=== PATIENT | male | born 1950 | race Caucasian/White ===

== ENCOUNTER 2017-12-16 20:36 | Inpatient (IN) | payer OTHER, MEDICARE ==
[~2017-12-16] VITALS: Ht 190.5 cm; Wt 65.9 kg
[2017-12-16] MEDS ORDERED: IV NORMAL SALINE 1000ML BAG 1,000 ML IV ONE (21:15)
[2017-12-16] MEDS ORDERED: 0.9 % SOD CHL for STERILE FIELD 10 ML DISP.SYRIN. ONE (21:31)
--- NOTE | 2017-12-16 21:38 | PHYS DOC ---
Past Medical History Past Medical History: Other Additional Past Medical Histor: end stage lung cancer Past Medical History Unable to obtain due to altered mental status Past Surgical History Unable to obtain due to altered mental status Alcohol Use: None Drug Use: None Social History Unable to obtain due to altered mental status Adult General Chief Complaint Chief Complaint: ALTERED MENTAL STATUS HPI HPI Patient is a 67 year old male with past medical history of metastatic lung cancer. Patient presents via EMS for altered mental status, syncope, generalized fatigue, and decreased appetite. Unable to obtain history from patient due to confusion and altered mental status. As per EMS patient had a syncopal episode while he was walking at his nursing facility patient did not fall as he was able to be helped to the ground by the staff there. Review of Systems Review of Systems Constitutional: Denies fever or chills [] HENT: Denies nasal congestion or sore throat Respiratory: Denies cough or shortness of breath [] Cardiovascular: Denies chest pain[] GI: Denies abdominal pain[] Musculoskeletal: Notes back pain [] Neurologic: Notes confusion[] Unable to obtain due to altered mental status. Family History Family History Unable to obtain due to altered mental status Current Medications Current Medications Current Medications Medications (Trade) Dose Ordered Sig/Elida Start Time Stop Time Status Last Admin Dose Admin Lorazepam (Ativan) 1 mg 1X ONCE 12/16/17 22:30 12/16/17 22:51 DC 12/16/17 22:46 1 MG Sodium Chloride (NORMAL SALINE FLUSH for STERILE FIELD) 10 ml STK-MED ONCE 12/16/17 21:31 12/16/17 21:32 DC Allergies Allergies Allergies Coded Allergies Type Severity Reaction Last Updated Verified Penicillins Allergy Intermediate 12/16/17 Yes Physical Exam Physical Exam Constitutional: Well developed, no acute distress, non-toxic appearance. [] HENT: Normocephalic, atraumatic, oropharynx moist, no oral exudates, nose normal. [] Eyes: PERRL, EOMI, conjunctiva normal, no discharge. [] Neck: Normal range of motion, no tenderness, supple, no meningismus. [] Cardiovascular:Heart rate regular rhythm, no murmur [] Lungs & Thorax: Bilateral breath sounds clear to auscultation [] Abdomen: Scaphoid, soft, nondistended, no tenderness [] Skin: Warm, dry, no erythema, no rash. [] Back: No tenderness, no CVA tenderness. [] Extremities: No tenderness, ROM intact, no edema. [] Neurologic: Confused, Alert and oriented X1-self only, normal motor function, normal sensory function, no focal deficits noted. Cerebellar testing UE and LE normal [] Psychologic: Affect normal, mood normal, tangential thought process [] Current Patient Data Vital Signs Vital Signs Date Time Temp Pulse Resp B/P (MAP) Pulse Ox O2 Delivery O2 Flow Rate FiO2 12/17/17 00:08 88 18 106/72 (83) 97 Room Air 12/16/17 20:45 97.9 97.9 Lab Values Laboratory Tests Test 12/16/17 21:26 12/17/17 00:03 White Blood Count 9.3 x10^3/uL (4.0-11.0) Red Blood Count 3.97 x10^6/uL (4.30-5.70) L Hemoglobin 12.4 g/dL (13.0-17.5) L Hematocrit 36.5 % (39.0-53.0) L Mean Corpuscular Volume 92 fL (79-100) Mean Corpuscular Hemoglobin 31 pg (25-35) Mean Corpuscular Hemoglobin Concent 34 g/dL (31-37) Red Cell Distribution Width 13.1 % (11.5-14.5) Platelet Count 261 x10^3/uL (140-400) Neutrophils (%) (Auto) 87 % (31-73) H Lymphocytes (%) (Auto) 10 % (24-48) L Monocytes (%) (Auto) 2 % (0-9) Eosinophils (%) (Auto) 1 % (0-3) Basophils (%) (Auto) 1 % (0-3) Neutrophils # (Auto) 8.1 x10^3uL (1.8-7.7) H Lymphocytes # (Auto) 0.9 x10^3/uL (1.0-4.8) L Monocytes # (Auto) 0.2 x10^3/uL (0.0-1.1) Eosinophils # (Auto) 0.1 x10^3/uL (0.0-0.7) Basophils # (Auto) 0.0 x10^3/uL (0.0-0.2) Prothrombin Time 14.5 SEC (11.7-14.0) H Prothrombin Time INR 1.2 (0.8-1.1) H PTT 28 SEC (24-38) Sodium Level 137 mmol/L (136-145) Potassium Level 4.2 mmol/L (3.5-5.1) Chloride Level 100 mmol/L (98-107) Carbon Dioxide Level 27 mmol/L (21-32) Anion Gap 10 (6-14) Blood Urea Nitrogen 20 mg/dL (8-26) Creatinine 0.9 mg/dL (0.7-1.3) Estimated GFR (Cockcroft-Gault) 84.7 BUN/Creatinine Ratio 22 (6-20) H Glucose Level 105 mg/dL (70-99) H Lactic Acid Level 1.9 mmol/L (0.4-2.0) Calcium Level 8.8 mg/dL (8.5-10.1) Magnesium Level 2.0 mg/dL (1.8-2.4) Total Bilirubin 0.7 mg/dL (0.2-1.0) Aspartate Amino Transferase (AST) 29 U/L (15-37) Alanine Aminotransferase (ALT) 25 U/L (16-63) Alkaline Phosphatase 103 U/L (46-116) Ammonia < 10 mcmol/L (11-34) L Troponin I Quantitative < 0.017 ng/mL (0.000-0.055) Total Protein 6.3 g/dL (6.4-8.2) L Albumin 2.4 g/dL (3.4-5.0) L Albumin/Globulin Ratio 0.6 (1.0-1.7) L Ethyl Alcohol Level < 10 mg/dL (0-10) Urine Collection Type Unknown Urine Color Yellow Urine Clarity Cloudy Urine pH 7.5 Urine Specific [place] 1.025 Urine Protein 30 mg/dL (NEG-TRACE) Urine Glucose (UA) Negative mg/dL (NEG) Urine Ketones (Stick) >=80 mg/dL (NEG) Urine Blood Negative (NEG) Urine Nitrite Negative (NEG) Urine Bilirubin Small (NEG) Urine Urobilinogen Dipstick 1.0 mg/dL (0.2 mg/dL) Urine Leukocyte Esterase Negative (NEG) Urine RBC 0 /HPF (0-2) Urine WBC 1-4 /HPF (0-4) Urine Squamous Epithelial Cells Occ /LPF Urine Amorphous Sediment Present /HPF Urine Bacteria 0 /HPF (0-FEW) Urine Mucus Slight /LPF Urine Opiates Screen Neg (NEG) Urine Methadone Screen Neg (NEG) Urine Barbiturates Neg (NEG) Urine Phencyclidine Screen Neg (NEG) Urine Amphetamine/Methamphetamine Neg (NEG) Urine Benzodiazepines Screen Neg (NEG) Urine Cocaine Screen Neg (NEG) Urine Cannabinoids Screen Neg (NEG) Urine Ethyl Alcohol Neg (NEG) Laboratory Tests 12/16/17 21:26 Laboratory Tests 12/16/17 21:26 EKG EKG Sinus rhythm, rate 82, CO 140, QRS 86, QTC 426 right axis deviation no acute ischemic changes noted.[] Interpretation Time: 2146 Radiology/Procedures Radiology/Procedures PROCEDURE: PORTABLE CHEST 1V AP portable chest radiograph 12/16/2017 Clinical History: Shortness of breath since earlier today. An AP erect portable digital radiograph of the chest was obtained. No previous studies are available for comparison. The cardiac silhouette is normal in size. The thoracic aorta is minimally tortuous. No acute pulmonary infiltrate is seen. Blunting of the left costophrenic angle is seen which could reflect pleural thickening versus a minimal left pleural effusion. No pneumothorax is seen. Degenerative changes are seen involving the thoracic spine and both shoulders. IMPRESSION: No acute pulmonary infiltrate is seen. Electronically signed by: Abran Viveros MD (12/17/2017 12:14 AM) [facility] Course & Med Decision Making Course & Med Decision Making Pertinent Labs and Imaging studies reviewed. (See chart for details) [] Dragon Disclaimer Dragon Disclaimer This electronic medical record was generated, in whole or in part, using a voice recognition dictation system. Departure Departure Impression: Primary Impression: Altered mental status Additional Impressions: Generalized weakness History of cancer Disposition: ADMITTED INPATIENT Admitting Physician: Xie. Bernard Condition: GUARDED Problem Qualifiers Primary Impression: Altered mental status Altered mental status type: unspecified Qualified Codes: R41.82 - Altered mental status, unspecified LAKEISHA GOMEZ DO Dec 16, 2017 21:38
[2017-12-16 21:41] LABS: BASO % 1 % (0-3); EOS # 0.1 x10^3/uL (0.0-0.7); EOS % 1 % (0-3); HEMATOCRIT 36.5 % (39.0-53.0); HEMOGLOBIN 12.4 g/dL (13.0-17.5); LYMPH # 0.9 x10^3/uL (1.0-4.8); LYMPH % 10 % (24-48); MEAN CORPUSCULAR HEMOGLOBIN 31 pg (25-35); MEAN CORPUSCULAR HGB CONC 34 g/dL (31-37); MEAN CORPUSCULAR VOLUME 92 fL (79-100); MONO # 0.2 x10^3/uL (0.0-1.1); MONO % 2 % (0-9); NEUT # 8.1 x10^3uL (1.8-7.7); NEUT % 87 % (31-73); PLATELET COUNT 261 x10^3/uL (140-400); RED BLOOD COUNT 3.97 x10^6/uL (4.30-5.70); RED CELL DISTRIBUTION WIDTH 13.1 % (11.5-14.5); WHITE BLOOD COUNT 9.3 x10^3/uL (4.0-11.0)
[2017-12-16 21:52] LABS: PROTHROMBIN TIME PATIENT 14.5 SEC (11.7-14.0)
[2017-12-16 22:00] LABS: CALCIUM 8.8 mg/dL (8.5-10.1); CREATININE 0.9 mg/dL (0.7-1.3); GFR 84.7; POTASSIUM 4.2 mmol/L (3.5-5.1)
[2017-12-16 22:05] LABS: ALBUMIN 2.4 g/dL (3.4-5.0); ALBUMIN/GLOBULIN RATIO 0.6 (1.0-1.7); TOTAL BILIRUBIN 0.7 mg/dL (0.2-1.0); TOTAL PROTEIN 6.3 g/dL (6.4-8.2)
--- NOTE | 2017-12-16 22:09 | EKG ---
[facility] [address] [place] [address] Test Date: 2017-12-16 Test Time: 21:24:00 Pat Name: JOSE SPARKS Department: Room: Gender: Male Pediatric Immunologist: : 1950 Requested By: LAKEISHA GOMEZ Order Number: [id number] Reading MD: Amanuel Santana MD Measurements Intervals [place] Rate: 82 P: 121 AL: 140 QRS: 154 QRSD: 86 T: 125 QT: 362 QTc: 426 Interpretive Statements LIMB LEAD MISPLACEMENT NON-SPECIFIC ST/T CHANGES Electronically Signed On 12-17-2017 12:50:22 CDT by Amanuel Santana MD
[2017-12-17] VITALS (7 sets, daily range): BP systolic 98–112; BP diastolic 65–76
[2017-12-17 00:13] LABS: BILIRUBIN,URINE SMALL (NEG); CLARITY,URINE CLOUDY; COLOR,URINE YELLOW; NITRITE,URINE NEGATIVE (NEG); PH,URINE 7.5; PROTEIN,URINE 30 mg/dL (NEG-TRACE)
[2017-12-17] MEDS ORDERED: ONDANSETRON PF 4 MG/2 ML VIAL. IV PRN ×2 (00:15→09:30)
--- NOTE | 2017-12-17 00:17 | RAD ---
AP portable chest radiograph 12/16/2017 Clinical History: Shortness of breath since earlier today. An AP erect portable digital radiograph of the chest was obtained. No previous studies are available for comparison. The cardiac silhouette is normal in size. The thoracic aorta is minimally tortuous. No acute pulmonary infiltrate is seen. Blunting of the left costophrenic angle is seen which could reflect pleural thickening versus a minimal left pleural effusion. No pneumothorax is seen. Degenerative changes are seen involving the thoracic spine and both shoulders. IMPRESSION: No acute pulmonary infiltrate is seen. Electronically signed by: Abran Viveros MD (12/17/2017 12:14 AM) [facility]
[2017-12-17 00:21] LABS: BARBITURATES NEG (NEG); BENZODIAZEPINES NEG (NEG); CANNABINOIDS NEG (NEG); COCAINE NEG (NEG); METHADONE NEG (NEG); OPIATES NEG (NEG); PHENCYCLIDINE NEG (NEG)
[2017-12-17 00:22] LABS: BACTERIA,URINE 0 /HPF (0-FEW); RBC,URINE 0 /HPF (0-2)
[2017-12-17 00:23] LABS: AMORPHOUS SEDIMENT,UR PRESENT /HPF; SQUAMOUS EPITHELIAL CELL,UR OCC /LPF
[2017-12-17 00:24] LABS: AMPHETAMINE/METHAMPHETAMINE NEG (NEG)
[2017-12-17] MEDS ORDERED: FOLI1TAB16 PO (02:47)
[2017-12-17] MEDS ORDERED: DOCU100C28 PO (02:47)
[2017-12-17] MEDS ORDERED: MELA1TAB11 PO (02:47)
[2017-12-17] MEDS ORDERED: LORA0.5T PO (02:47)
[2017-12-17] MEDS ORDERED: SUCR1TAB PO (02:47)
[2017-12-17] MEDS ORDERED: ONDA4TAB7 PO (02:47)
[2017-12-17] MEDS ORDERED: MIDO5TAB PO (02:47)
[2017-12-17] MEDS ORDERED: SENN-79 PO (02:47)
[2017-12-17] MEDS ORDERED: DICL100G18 TP (02:47)
[2017-12-17] MEDS ORDERED: PANT20TA2 PO (02:47)
[2017-12-17] MEDS ORDERED: FLUT9.9S NS (02:47)
[2017-12-17] MEDS ORDERED: MIRT15TA3 PO (02:47)
[2017-12-17] MEDS ORDERED: LIDO700A39 TP (02:47)
[2017-12-17] MEDS ORDERED: HYDR-971 PO (02:47)
[2017-12-17] MEDS ORDERED: CYCL10TA2 PO (02:47)
[2017-12-17] MEDS ORDERED: GABA-585 PO (02:47)
[2017-12-17] MEDS ORDERED: POLY255P PO (02:47)
[2017-12-17] MEDS ORDERED: ACETAMINOPHEN 325 MG TABLET. PO PRN (09:30)
[2017-12-17] MEDS ORDERED: POLYETHYLENE GLYCOL 3350 238 GM POWDER PO PRN (09:30)
[2017-12-17] MEDS ORDERED: CYCLOBENZAPRINE 10 MG TABLET. PO PRN (09:30)
[2017-12-17] MEDS ORDERED: ACETAMINOPHEN/CODEINE 300/30MG TABLET. PO PRN (09:30)
[2017-12-17] MEDS ORDERED: PYRIDOXINE HCL PO PRN (09:30)
[2017-12-17] MEDS ORDERED: IBUPROFEN 200 MG TABLET. PO PRN (09:30)
[2017-12-17] MEDS ORDERED: LORazepam 0.5 MG TABLET PO PRN (09:30)
[2017-12-17] MEDS ORDERED: MELATONIN PO PRN (09:30)
[2017-12-17] MEDS ORDERED: ONDANSETRON ODT 4 MG TAB.RAPDIS. PO PRN (09:45)
[2017-12-17] MEDS: FLUTICASONE 50MCG/NASAL SPRAY 16GM BOTTLE. NS SCH ×2 (10:00→20:16)
[2017-12-17] MEDS: LIDOCAINE (700MG/PATCH) PATCH. TD SCH (10:00)
[2017-12-17] MEDS: GABAPENTIN 100 MG CAPSULE. PO SCH ×3 (10:17→20:16)
[2017-12-17] MEDS: DOCUSATE SODIUM 100 MG CAPSULE. PO SCH ×2 (10:17→20:19)
[2017-12-17] MEDS: FOLIC ACID 1 MG TABLET. PO SCH (10:17)
[2017-12-17] MEDS: PANTOPRAZOLE 40 MG TABLET.DR. PO SCH (11:30)
[2017-12-17] MEDS: SUCRALFATE 1 GM TABLET. PO SCH ×3 (11:30→20:16)
[2017-12-17] MEDS: DICLOFENAC SODIUM 1% TOPICAL GEL 100GM TUBE. TP SCH ×3 (13:00→20:19)
[2017-12-17] MEDS: MIDODRINE 5 MG TABLET PO SCH ×2 (13:33→18:00)
[2017-12-17] MEDS: MEGESTROL 20 MG TABLET. PO SCH (14:00)
--- NOTE | 2017-12-17 14:16 | PDOC1 ---
History and Physical Date of Admission Date of Admission DATE: 12/17/17 TIME: 14:06 Identification/Chief Complaint Chief Complaint poor appetite, fatigued at [facility] Source Source: Caregiver, Chart review, Patient History of Present Illness History of Present Illness Patient is a 67-year-old male who was recently diagnosed with metastatic lung carcinoma and follows with the supervisor [employer] oncologist and is undergoing chemotherapy, last one was maybe a week or 2 ago, is currently rehab[facility] at [facility]. Son involved in care, but because of poor by mouth intake and FTT sxs at healthcare [facility], the staff advised hospital admission to get more nutrition into him. Son had some very unhappy experiences with the ER, they did not wish to be "reinventing the wheel" so to speak and they felt that their needs or reason for admission was not listened to at ER. In any case, their focus is mainly on nutrition of their dad. I did have significant time discussing with the family, 2 visits today. I layed out options of nutrition. Which included Dobbhoff, ProcalAmine via peripheral line, TPN via PICC line and PEG tube. They did not seem attracted to the Dobbhoff because of discomfort and risks of being pulled-patient can be confused, it is optimal to try use the gut too so I did not recommend PICC line for TPN at the moment, We all decided to start a trial of Megace and ProcalAmine for now and see if he will recover nutrition intake. I did consult nutrition about possible boost. I did start Megace. Significant time. He is a full code, I discussed with the son at bedside but they are realistic. They don't want him prolonged on a ventilator or life support machines. [facility] discharge disposition will depend if patient will be on TPN PICC line-I did discuss with social work area to see with his insurance coverage but somehow we have our reservations as he has [employer] on coverage. In any case I have started the above. Full code, PT OT, proliferative meds, fall risk. Labs and imaging at ER are unimpressive. Pt got Ativan at the emergency room and family isn't happy about that as he got more even confused not able to eat Past Medical History Cardiovascular: HTN Heme/Onc: Anemia NOS, Cancer Past Surgical History Past Surgical History: No pertinent history Family History Family History: No Significant Social History Smoke: No ALCOHOL: none Drugs: None Current Problem List Problem List Problems Medical Problems: (1) Altered mental status Status: Acute (2) Generalized weakness Status: Acute (3) History of cancer Status: Acute Current Medications Current Medications Current Medications Sodium Chloride 1,000 ml @ 1,000 mls/hr 1X ONCE IV Last administered on at 21:53; Start 12/16/17 at 21:15; Stop 12/16/17 at 22:51; Status DC Sodium Chloride (NORMAL SALINE FLUSH for STERILE FIELD) 10 ml [employer] Gaming[employer]-MED ONCE .ROUTE ; Start 12/16/17 at 21:31; Stop 12/16/17 at 21:32; Status DC Lorazepam (Ativan) 1 mg 1X ONCE IV Last administered on 12/16/17at 22:46; Start 12/16/17 at 22:30; Stop 12/16/17 at 22:51; Status DC Ondansetron HCl (Zofran) 4 mg PRN Q8HRS PRN IV NAUSEA/VOMITING 1st choice; Start 12/17/17 at 00:15; Stop 12/17/17 at 09:19; Status DC Ondansetron HCl (Zofran) 4 mg PRN Q6HRS PRN IV NAUSEA/VOMITING 1st choice; Start 12/17/17 at 09:30 Acetaminophen (Tylenol) 650 mg PRN Q6HRS PRN PO MILD PAIN; Start 12/17/17 at 09 :30 Acetaminophen/ Codeine Phosphate (Tylenol #3) 1 tab PRN Q6HRS PRN PO MODERATE PAIN; Start 12/17/17 at 09:30 Ibuprofen (Motrin) 600 mg PRN Q6HRS PRN PO INFLAMMATION; Start 12/17/17 at 09: 30 Cyclobenzaprine HCl (Flexeril) 10 mg Q8HRS PRN PO MUSCLE SPASMS; Start at 09:30 Diclofenac Sodium (Voltaren) 1 dee QID TP ; Start 12/17/17 at 13:00 Docusate Sodium (Colace) 100 mg BID PO Last administered on 12/17/17at 10:17; Start 12/17/17 at 10:00 Folic Acid (Folic Acid) 1 mg DAILY PO Last administered on 12/17/17at 10:17; Start 12/17/17 at 10:00 Gabapentin (Neurontin) 200 mg TID PO Last administered on 12/17/17at 13:33; Start 12/17/17 at 10:00 Acetaminophen/ Hydrocodone Bitart (Lortab 5/325) 1 tab PRN Q6HRS PRN PO MODERATE PAIN; Start 12/17/17 at 09:30 Lorazepam (Ativan) 0.5 mg PRN Q6HRS PRN PO ANXIETY; Start 12/17/17 at 09:30 Polyethylene Glycol (miraLAX Powder BULK BOTTLE) 17 gm PRN Q6HRS PRN PO CONSTIPATION; Start 12/17/17 at 09:30 Fluticasone Propionate (Flonase) 1 spray BID NS ; Start 12/17/17 at 10:00 Lidocaine (Lidoderm) 1 patch DAILY TD ; Start 12/17/17 at 10:00 Non-Formulary Medication (Melatonin/ Pyridoxine Hcl (B6) (Melatonin 5 Mg Tablet) ) 1 tab QHS PRN PO INSOMNIA; Start 12/17/17 at 09:30; Status UNV Midodrine (Proamatine) 5 mg [id number] PO Last administered on 12/17/17at 13:33; Start 12/17/17 at 13:00 Mirtazapine (Remeron) 7.5 mg QHS PO ; Start 12/17/17 at 21:00 Ondansetron HCl (Zofran Odt) 4 mg PRN Q6HRS PRN PO NAUSEA/VOMITING; Start 12/17 at 09:45 Pantoprazole Sodium (Protonix) 40 mg DAILYAC PO ; Start 12/17/17 at 11:30 Sennosides (Senna) 17.2 mg QHS PO ; Start 12/17/17 at 21:00 Sucralfate (Carafate) 1 gm QIDACHS PO ; Start 12/17/17 at 11:30 Pyridoxine HCl (Vitamin B-6) 50 mg QHS PO ; Start 12/17/17 at 21:00 Amino Acids/ Glycerin/ Electrolytes 1,000 ml @ 80 mls/hr [id number] IV ; Start at 15:00 Megestrol Acetate (Megace) 20 mg DAILY PO ; Start 12/18/17 at 09:00; Status UNV Active Scripts Active Reported Cyclobenzaprine Hcl 10 Mg Tablet 1 Tab PO Q8HRS PRN [place] 5-325 Tablet (Acetaminophen/Hydrocodone Bitart) 1 Each Tablet 1 Tab PO PRN Q6HRS PRN Melatonin 5 Mg Tablet (Melatonin/Pyridoxine Hcl (B6)) 1 Each Tablet 1 Tab PO QHS PRN Zofran (Ondansetron Hcl) 4 Mg Tablet 1 Tab PO Q6HRS PRN Lorazepam 0.5 Mg Tablet 1 Tab PO Q6HRS PRN Polyethylene Glycol 3350 255 Gm Powder 17 Gm PO Q6HRS PRN Senna (Sennosides) 8.6 Mg Tablet 17.6 Mg PO QHS Sucralfate 1 Gm Tablet 1 Tab PO QID Mirtazapine 15 Mg Tablet 0.5 Tab PO QHS Flonase Allergy Relief (Fluticasone Propionate) 9.9 Ml [place].susp 2 Sprays NS BID Voltaren (Diclofenac Sodium) 100 Gm Gel..gram. 1 Gm TP QID Protonix (Pantoprazole Sodium) 20 Mg Tablet.dr 2 Tab PO DAILY Folic Acid 1 Mg Tablet 1 Tab PO DAILY Gabapentin 100 Mg Capsule 200 Mg PO TID Lidocaine 1 Each Adh..patch 1 Each TP DAILY 5% patch apply to upper back Docusate Sodium 100 Mg Capsule 1 Cap PO BID Midodrine Hcl 5 Mg Tablet 5 Mg PO TID hold for bp >160 systolic Allergies Allergies: Coded Allergies: Penicillins (Verified Allergy, Intermediate, 12/16/17) ROS Review of System Limited has some confusion, cognitive delirium dementia- family feels median, poor by mouth, fall risk, some confusion, Physical Exam General: No acute distress, Other (pleasant, smiling, not in distress, but some element of dementia may be) HEENT: PERRLA Lungs: Clear to auscultation, Normal air movement Heart: S1S2, RRR, no thrills, no rubs, no gallops, murmurs Cardiovascular: S1 Abdomen: Normal bowel sounds, Soft, No tenderness, No hepatosplenomegaly, No masses Male Genitals Exam: normal genitalia, normal prostate Rectal Exam: not examined Extremities: No clubbing, No cyanosis, No edema, Normal pulses, No tenderness/ swelling Skin: No rashes, No breakdown, No significant lesion Neuro: Normal gait, Normal speech, Strength at 5/5 X4 ext, Normal tone, Sensation intact, Cranial nerves 3-12 NL, Reflexes 2+ Psych/Mental Status: Mental status NL, Mood NL Vitals Vitals Vital Signs Date Time Temp Pulse Resp B/P (MAP) Pulse Ox O2 Delivery O2 Flow Rate FiO2 12/17/17 13:33 86 104/67 12/17/17 11:00 98.1 18 96 Room Air 98.1 Labs Labs Laboratory Tests Test 12/16/17 21:26 12/17/17 00:03 12/17/17 03:10 12/17/17 05:20 White Blood Count 9.3 x10^3/uL (4.0-11.0) Red Blood Count 3.97 x10^6/uL (4.30-5.70) Hemoglobin 12.4 g/dL (13.0-17.5) Hematocrit 36.5 % (39.0-53.0) Mean Corpuscular Volume 92 fL (79-100) Mean Corpuscular Hemoglobin 31 pg (25-35) Mean Corpuscular Hemoglobin Concent 34 g/dL (31-37) Red Cell Distribution Width 13.1 % (11.5-14.5) Platelet Count 261 x10^3/uL (140-400) Neutrophils (%) (Auto) 87 % (31-73) Lymphocytes (%) (Auto) 10 % (24-48) Monocytes (%) (Auto) 2 % (0-9) Eosinophils (%) (Auto) 1 % (0-3) Basophils (%) (Auto) 1 % (0-3) Neutrophils # (Auto) 8.1 x10^3uL (1.8-7.7) Lymphocytes # (Auto) 0.9 x10^3/uL (1.0-4.8) Monocytes # (Auto) 0.2 x10^3/uL (0.0-1.1) Eosinophils # (Auto) 0.1 x10^3/uL (0.0-0.7) Basophils # (Auto) 0.0 x10^3/uL (0.0-0.2) Prothrombin Time 14.5 SEC (11.7-14.0) Prothromb Time International Ratio 1.2 (0.8-1.1) Activated Partial Thromboplast Time 28 SEC (24-38) Sodium Level 137 mmol/L (136-145) Potassium Level 4.2 mmol/L (3.5-5.1) Chloride Level 100 mmol/L (98-107) Carbon Dioxide Level 27 mmol/L (21-32) Anion Gap 10 (6-14) Blood Urea Nitrogen 20 mg/dL (8-26) Creatinine 0.9 mg/dL (0.7-1.3) Estimated GFR (Cockcroft-Gault) 84.7 BUN/Creatinine Ratio 22 (6-20) Glucose Level 105 mg/dL (70-99) Lactic Acid Level 1.9 mmol/L (0.4-2.0) Calcium Level 8.8 mg/dL (8.5-10.1) Magnesium Level 2.0 mg/dL (1.8-2.4) Total Bilirubin 0.7 mg/dL (0.2-1.0) Aspartate Amino Transf (AST/SGOT) 29 U/L (15-37) Alanine Aminotransferase (ALT/SGPT) 25 U/L (16-63) Alkaline Phosphatase 103 U/L (46-116) Ammonia < 10 mcmol/L (11-34) Troponin I Quantitative < 0.017 ng/mL (0.000-0.055) < 0.017 ng/mL (0.000-0.055) < 0.017 ng/mL (0.000-0.055) Total Protein 6.3 g/dL (6.4-8.2) Albumin 2.4 g/dL (3.4-5.0) Albumin/Globulin Ratio 0.6 (1.0-1.7) Ethyl Alcohol Level < 10 mg/dL (0-10) Urine Collection Type Unknown Urine Color Yellow Urine Clarity Cloudy Urine pH 7.5 Urine Specific [place] 1.025 Urine Protein 30 mg/dL (NEG-TRACE) Urine Glucose (UA) Negative mg/dL (NEG) Urine Ketones (Stick) >=80 mg/dL (NEG) Urine Blood Negative (NEG) Urine Nitrite Negative (NEG) Urine Bilirubin Small (NEG) Urine Urobilinogen Dipstick 1.0 mg/dL (0.2 mg/dL) Urine Leukocyte Esterase Negative (NEG) Urine RBC 0 /HPF (0-2) Urine WBC 1-4 /HPF (0-4) Urine Squamous Epithelial Cells Occ /LPF Urine Amorphous Sediment Present /HPF Urine Bacteria 0 /HPF (0-FEW) Urine Mucus Slight /LPF Urine Opiates Screen Neg (NEG) Urine Methadone Screen Neg (NEG) Urine Barbiturates Neg (NEG) Urine Phencyclidine Screen Neg (NEG) Urine Amphetamine/Methamphetamine Neg (NEG) Urine Benzodiazepines Screen Neg (NEG) Urine Cocaine Screen Neg (NEG) Urine Cannabinoids Screen Neg (NEG) Urine Ethyl Alcohol Neg (NEG) Thyroid Stimulating Hormone (TSH) 6.754 uIU/mL (0.358-3.74) Laboratory Tests Test 12/16/17 21:26 12/17/17 00:03 12/17/17 03:10 12/17/17 05:20 White Blood Count 9.3 x10^3/uL (4.0-11.0) Red Blood Count 3.97 x10^6/uL (4.30-5.70) Hemoglobin 12.4 g/dL (13.0-17.5) Hematocrit 36.5 % (39.0-53.0) Mean Corpuscular Volume 92 fL (79-100) Mean Corpuscular Hemoglobin 31 pg (25-35) Mean Corpuscular Hemoglobin Concent 34 g/dL (31-37) Red Cell Distribution Width 13.1 % (11.5-14.5) Platelet Count 261 x10^3/uL (140-400) Neutrophils (%) (Auto) 87 % (31-73) Lymphocytes (%) (Auto) 10 % (24-48) Monocytes (%) (Auto) 2 % (0-9) Eosinophils (%) (Auto) 1 % (0-3) Basophils (%) (Auto) 1 % (0-3) Neutrophils # (Auto) 8.1 x10^3uL (1.8-7.7) Lymphocytes # (Auto) 0.9 x10^3/uL (1.0-4.8) Monocytes # (Auto) 0.2 x10^3/uL (0.0-1.1) Eosinophils # (Auto) 0.1 x10^3/uL (0.0-0.7) Basophils # (Auto) 0.0 x10^3/uL (0.0-0.2) Prothrombin Time 14.5 SEC (11.7-14.0) Prothromb Time International Ratio 1.2 (0.8-1.1) Activated Partial Thromboplast Time 28 SEC (24-38) Sodium Level 137 mmol/L (136-145) Potassium Level 4.2 mmol/L (3.5-5.1) Chloride Level 100 mmol/L (98-107) Carbon Dioxide Level 27 mmol/L (21-32) Anion Gap 10 (6-14) Blood Urea Nitrogen 20 mg/dL (8-26) Creatinine 0.9 mg/dL (0.7-1.3) Estimated GFR (Cockcroft-Gault) 84.7 BUN/Creatinine Ratio 22 (6-20) Glucose Level 105 mg/dL (70-99) Lactic Acid Level 1.9 mmol/L (0.4-2.0) Calcium Level 8.8 mg/dL (8.5-10.1) Magnesium Level 2.0 mg/dL (1.8-2.4) Total Bilirubin 0.7 mg/dL (0.2-1.0) Aspartate Amino Transf (AST/SGOT) 29 U/L (15-37) Alanine Aminotransferase (ALT/SGPT) 25 U/L (16-63) Alkaline Phosphatase 103 U/L (46-116) Ammonia < 10 mcmol/L (11-34) Troponin I Quantitative < 0.017 ng/mL (0.000-0.055) < 0.017 ng/mL (0.000-0.055) < 0.017 ng/mL (0.000-0.055) Total Protein 6.3 g/dL (6.4-8.2) Albumin 2.4 g/dL (3.4-5.0) Albumin/Globulin Ratio 0.6 (1.0-1.7) Ethyl Alcohol Level < 10 mg/dL (0-10) Urine Collection Type Unknown Urine Color Yellow Urine Clarity Cloudy Urine pH 7.5 Urine Specific [place] 1.025 Urine Protein 30 mg/dL (NEG-TRACE) Urine Glucose (UA) Negative mg/dL (NEG) Urine Ketones (Stick) >=80 mg/dL (NEG) Urine Blood Negative (NEG) Urine Nitrite Negative (NEG) Urine Bilirubin Small (NEG) Urine Urobilinogen Dipstick 1.0 mg/dL (0.2 mg/dL) Urine Leukocyte Esterase Negative (NEG) Urine RBC 0 /HPF (0-2) Urine WBC 1-4 /HPF (0-4) Urine Squamous Epithelial Cells Occ /LPF Urine Amorphous Sediment Present /HPF Urine Bacteria 0 /HPF (0-FEW) Urine Mucus Slight /LPF Urine Opiates Screen Neg (NEG) Urine Methadone Screen Neg (NEG) Urine Barbiturates Neg (NEG) Urine Phencyclidine Screen Neg (NEG) Urine Amphetamine/Methamphetamine Neg (NEG) Urine Benzodiazepines Screen Neg (NEG) Urine Cocaine Screen Neg (NEG) Urine Cannabinoids Screen Neg (NEG) Urine Ethyl Alcohol Neg (NEG) Thyroid Stimulating Hormone (TSH) 6.754 uIU/mL (0.358-3.74) VTE Prophylaxis Ordered VTE Prophylaxis Devices: Yes VTE Pharmacological Prophylaxi: Yes Assessment/Plan Assessment/Plan Poor by mouth, weight loss, fatigability Metastatic lung cancer, recently diagnosed, undergoing chemotherapy Anemia of cancer High fall risk Encephalopathy, multifactorial Franco thrive symptoms Full code Adverse reaction to Ativan- - too much sedation PLAN: Admit, procalamine, Megace Nutrition consult Boost DVT ppx Supportive emds NO more ativan Full code SIGNIF TIME JAIME MALAVE MD Dec 17, 2017 14:16
[2017-12-17] MEDS: AMINO AC 3%/ELECTROLYTE/GLYCER 1,000 ML IV SCH (17:13)
[2017-12-17] MEDS: ENOXAPARIN 40 MG/0.4 ML SYRINGE. SQ SCH (20:16)
[2017-12-17] MEDS: MIRTAZAPINE 7.5 MG TABLET. PO SCH (20:16)
[2017-12-17] MEDS: SENNOSIDES 8.6 MG TABLET PO SCH (20:19)
[2017-12-17] MEDS: PYRIDOXINE 50 MG TABLET. PO SCH (20:19)
[2017-12-18 03:25] VITALS: BP 109/71
[2017-12-18] MEDS: AMINO AC 3%/ELECTROLYTE/GLYCER 1,000 ML IV SCH ×2 (04:42→19:36)
[2017-12-18 07:00] VITALS: BP 111/70
[2017-12-18] MEDS: FLUTICASONE 50MCG/NASAL SPRAY 16GM BOTTLE. NS SCH ×2 (08:52→21:00)
[2017-12-18] MEDS: DOCUSATE SODIUM 100 MG CAPSULE. PO SCH ×2 (08:53→21:00)
[2017-12-18] MEDS: MEGESTROL 20 MG TABLET. PO SCH (08:53)
[2017-12-18] MEDS: MIDODRINE 5 MG TABLET PO SCH ×3 (08:53→18:00)
[2017-12-18] MEDS: FOLIC ACID 1 MG TABLET. PO SCH (08:53)
[2017-12-18] MEDS: SUCRALFATE 1 GM TABLET. PO SCH ×4 (08:54→21:00)
[2017-12-18] MEDS: GABAPENTIN 100 MG CAPSULE. PO SCH ×3 (08:54→21:00)
[2017-12-18] MEDS: PANTOPRAZOLE 40 MG TABLET.DR. PO SCH (08:54)
[2017-12-18] MEDS: DICLOFENAC SODIUM 1% TOPICAL GEL 100GM TUBE. TP SCH ×4 (08:55→21:00)
[2017-12-18] MEDS: LIDOCAINE (700MG/PATCH) PATCH. TD SCH (08:55)
[2017-12-18 11:00] VITALS: BP 98/74
--- NOTE | 2017-12-18 12:19 | PDOC ---
PROGRESS NOTES Chief Complaint Chief Complaint acute metabolic encephalopathy, NOS Metastatic lung cancer, recently diagnosed, undergoing chemotherapy [facility], unsure if mets to brain Anemia of cancer High fall risk Encephalopathy, multifactorial Franco thrive symptoms Full code Adverse reaction to Ativan- - too much sedation History of Present Illness History of Present Illness started on PPN by admit doctor, I dont know what the long-term plan is,, have consulted palliative and Onc, Nutrition consult Boost DVT ppx Supportive meds Full code Vitals Vitals Vital Signs Date Time Temp Pulse Resp B/P (MAP) Pulse Ox O2 Delivery O2 Flow Rate FiO2 12/18/17 11:00 98.1 78 16 98/74 (82) 97 Room Air 98.1 Physical Exam General: No acute distress, Other (pleasant, smiling, not in distress, but some element of dementia may be) Heart: Regular rate Lungs: Other Abdomen: Normal bowel sounds, Soft, No tenderness, No hepatosplenomegaly, No masses Extremities: No clubbing, No cyanosis, No edema, Normal pulses, No tenderness/ swelling Skin: No rashes, No breakdown, No significant lesion Assessment and Plan Assessmemt and Plan Problems Medical Problems: (1) Altered mental status Status: Acute (2) Generalized weakness Status: Acute (3) History of cancer Status: Acute Comment Review of Relevant I have reviewed the following items violet (where applicable) has been applied. Labs Laboratory Tests Test 12/16/17 21:26 12/17/17 00:03 12/17/17 02:40 12/17/17 03:10 White Blood Count 9.3 x10^3/uL (4.0-11.0) Red Blood Count 3.97 x10^6/uL (4.30-5.70) Hemoglobin 12.4 g/dL (13.0-17.5) Hematocrit 36.5 % (39.0-53.0) Mean Corpuscular Volume 92 fL (79-100) Mean Corpuscular Hemoglobin 31 pg (25-35) Mean Corpuscular Hemoglobin Concent 34 g/dL (31-37) Red Cell Distribution Width 13.1 % (11.5-14.5) Platelet Count 261 x10^3/uL (140-400) Neutrophils (%) (Auto) 87 % (31-73) Lymphocytes (%) (Auto) 10 % (24-48) Monocytes (%) (Auto) 2 % (0-9) Eosinophils (%) (Auto) 1 % (0-3) Basophils (%) (Auto) 1 % (0-3) Neutrophils # (Auto) 8.1 x10^3uL (1.8-7.7) Lymphocytes # (Auto) 0.9 x10^3/uL (1.0-4.8) Monocytes # (Auto) 0.2 x10^3/uL (0.0-1.1) Eosinophils # (Auto) 0.1 x10^3/uL (0.0-0.7) Basophils # (Auto) 0.0 x10^3/uL (0.0-0.2) Prothrombin Time 14.5 SEC (11.7-14.0) Prothromb Time International Ratio 1.2 (0.8-1.1) Activated Partial Thromboplast Time 28 SEC (24-38) Sodium Level 137 mmol/L (136-145) Potassium Level 4.2 mmol/L (3.5-5.1) Chloride Level 100 mmol/L (98-107) Carbon Dioxide Level 27 mmol/L (21-32) Anion Gap 10 (6-14) Blood Urea Nitrogen 20 mg/dL (8-26) Creatinine 0.9 mg/dL (0.7-1.3) Estimated GFR (Cockcroft-Gault) 84.7 BUN/Creatinine Ratio 22 (6-20) Glucose Level 105 mg/dL (70-99) Lactic Acid Level 1.9 mmol/L (0.4-2.0) Calcium Level 8.8 mg/dL (8.5-10.1) Magnesium Level 2.0 mg/dL (1.8-2.4) Total Bilirubin 0.7 mg/dL (0.2-1.0) Aspartate Amino Transf (AST/SGOT) 29 U/L (15-37) Alanine Aminotransferase (ALT/SGPT) 25 U/L (16-63) Alkaline Phosphatase 103 U/L (46-116) Ammonia < 10 mcmol/L (11-34) Troponin I Quantitative < 0.017 ng/mL (0.000-0.055) < 0.017 ng/mL (0.000-0.055) Total Protein 6.3 g/dL (6.4-8.2) Albumin 2.4 g/dL (3.4-5.0) Albumin/Globulin Ratio 0.6 (1.0-1.7) Ethyl Alcohol Level < 10 mg/dL (0-10) Urine Collection Type Unknown Urine Color Yellow Urine Clarity Cloudy Urine pH 7.5 Urine Specific [place] 1.025 Urine Protein 30 mg/dL (NEG-TRACE) Urine Glucose (UA) Negative mg/dL (NEG) Urine Ketones (Stick) >=80 mg/dL (NEG) Urine Blood Negative (NEG) Urine Nitrite Negative (NEG) Urine Bilirubin Small (NEG) Urine Urobilinogen Dipstick 1.0 mg/dL (0.2 mg/dL) Urine Leukocyte Esterase Negative (NEG) Urine RBC 0 /HPF (0-2) Urine WBC 1-4 /HPF (0-4) Urine Squamous Epithelial Cells Occ /LPF Urine Amorphous Sediment Present /HPF Urine Bacteria 0 /HPF (0-FEW) Urine Mucus Slight /LPF Urine Opiates Screen Neg (NEG) Urine Methadone Screen Neg (NEG) Urine Barbiturates Neg (NEG) Urine Phencyclidine Screen Neg (NEG) Urine Amphetamine/Methamphetamine Neg (NEG) Urine Benzodiazepines Screen Neg (NEG) Urine Cocaine Screen Neg (NEG) Urine Cannabinoids Screen Neg (NEG) Urine Ethyl Alcohol Neg (NEG) Nasal Screen MRSA (PCR) Negative (Negative) Test 12/17/17 05:20 Troponin I Quantitative < 0.017 ng/mL (0.000-0.055) Thyroid Stimulating Hormone (TSH) 6.754 uIU/mL (0.358-3.74) Medications Current Medications Sodium Chloride 1,000 ml @ 1,000 mls/hr 1X ONCE IV Last administered on at 21:53; Start 12/16/17 at 21:15; Stop 12/16/17 at 22:51; Status DC Sodium Chloride (NORMAL SALINE FLUSH for STERILE FIELD) 10 ml [place] ONCE .ROUTE ; Start 12/16/17 at 21:31; Stop 12/16/17 at 21:32; Status DC Lorazepam (Ativan) 1 mg 1X ONCE IV Last administered on 12/16/17at 22:46; Start 12/16/17 at 22:30; Stop 12/16/17 at 22:51; Status DC Ondansetron HCl (Zofran) 4 mg PRN Q8HRS PRN IV NAUSEA/VOMITING 1st choice; Start 12/17/17 at 00:15; Stop 12/17/17 at 09:19; Status DC Ondansetron HCl (Zofran) 4 mg PRN Q6HRS PRN IV NAUSEA/VOMITING 1st choice; Start 12/17/17 at 09:30 Acetaminophen (Tylenol) 650 mg PRN Q6HRS PRN PO MILD PAIN; Start 12/17/17 at 09 :30 Acetaminophen/ Codeine Phosphate (Tylenol #3) 1 tab PRN Q6HRS PRN PO MODERATE PAIN; Start 12/17/17 at 09:30; Stop 12/17/17 at 14:14; Status DC Ibuprofen (Motrin) 600 mg PRN Q6HRS PRN PO INFLAMMATION; Start 12/17/17 at 09: 30 Cyclobenzaprine HCl (Flexeril) 10 mg Q8HRS PRN PO MUSCLE SPASMS; Start at 09:30 Diclofenac Sodium (Voltaren) 1 dee QID TP ; Start 12/17/17 at 13:00 Docusate Sodium (Colace) 100 mg BID PO Last administered on 12/18/17at 08:53; Start 12/17/17 at 10:00 Folic Acid (Folic Acid) 1 mg DAILY PO Last administered on 12/18/17at 08:53; Start 12/17/17 at 10:00 Gabapentin (Neurontin) 200 mg TID PO Last administered on 12/18/17at 08:54; Start 12/17/17 at 10:00 Acetaminophen/ Hydrocodone Bitart (Lortab 5/325) 1 tab PRN Q6HRS PRN PO MODERATE-SEVERE PAIN; Start 12/17/17 at 09:30 Lorazepam (Ativan) 0.5 mg PRN Q6HRS PRN PO ANXIETY; Start 12/17/17 at 09:30; Stop 12/17/17 at 14:14; Status DC Polyethylene Glycol (miraLAX Powder BULK BOTTLE) 17 gm PRN Q6HRS PRN PO CONSTIPATION; Start 12/17/17 at 09:30 Fluticasone Propionate (Flonase) 1 spray BID NS Last administered on 12/18/17at 08:52; Start 12/17/17 at 10:00 Lidocaine (Lidoderm) 1 patch DAILY TD ; Start 12/17/17 at 10:00 Non-Formulary Medication (Melatonin/ Pyridoxine Hcl (B6) (Melatonin 5 Mg Tablet) ) 1 tab QHS PRN PO INSOMNIA; Start 12/17/17 at 09:30; Status UNV Midodrine (Proamatine) 5 mg [id number] PO Last administered on 12/18/17at 08:53; Start 12/17/17 at 13:00 Mirtazapine (Remeron) 7.5 mg QHS PO Last administered on 12/17/17at 20:16; Start 12/17/17 at 21:00 Ondansetron HCl (Zofran Odt) 4 mg PRN Q6HRS PRN PO NAUSEA/VOMITING; Start 12/17 at 09:45 Pantoprazole Sodium (Protonix) 40 mg DAILYAC PO Last administered on 12/18/17at 08:54; Start 12/17/17 at 11:30 Sennosides (Senna) 17.2 mg QHS PO ; Start 12/17/17 at 21:00 Sucralfate (Carafate) 1 gm QIDACHS PO Last administered on 12/18/17at 08:54; Start 12/17/17 at 11:30 Pyridoxine HCl (Vitamin B-6) 50 mg QHS PO Last administered on 12/17/17at 20:19 ; Start 12/17/17 at 21:00 Amino Acids/ Glycerin/ Electrolytes 1,000 ml @ 80 mls/hr [id number] IV Last administered on 12/18/17at 04:42; Start 12/17/17 at 15:00 Megestrol Acetate (Megace) 20 mg DAILY PO Last administered on 12/18/17at 08:53 ; Start 12/17/17 at 14:00 Enoxaparin Sodium (Lovenox 40mg Syringe) 40 mg Q24H SQ Last administered on at 20:16; Start 12/17/17 at 21:00 Active Scripts Active Reported Cyclobenzaprine Hcl 10 Mg Tablet 1 Tab PO Q8HRS PRN [place] 5-325 Tablet (Acetaminophen/Hydrocodone Bitart) 1 Each Tablet 1 Tab PO PRN Q6HRS PRN Melatonin 5 Mg Tablet (Melatonin/Pyridoxine Hcl (B6)) 1 Each Tablet 1 Tab PO QHS PRN Zofran (Ondansetron Hcl) 4 Mg Tablet 1 Tab PO Q6HRS PRN Lorazepam 0.5 Mg Tablet 1 Tab PO Q6HRS PRN Polyethylene Glycol 3350 255 Gm Powder 17 Gm PO Q6HRS PRN Senna (Sennosides) 8.6 Mg Tablet 17.6 Mg PO QHS Sucralfate 1 Gm Tablet 1 Tab PO QID Mirtazapine 15 Mg Tablet 0.5 Tab PO QHS Flonase Allergy Relief (Fluticasone Propionate) 9.9 Ml [employer].susp 2 Sprays NS BID Voltaren (Diclofenac Sodium) 100 Gm Gel..gram. 1 Gm TP QID Protonix (Pantoprazole Sodium) 20 Mg Tablet.dr 2 Tab PO DAILY Folic Acid 1 Mg Tablet 1 Tab PO DAILY Gabapentin 100 Mg Capsule 200 Mg PO TID Lidocaine 1 Each Adh..patch 1 Each TP DAILY 5% patch apply to upper back Docusate Sodium 100 Mg Capsule 1 Cap PO BID Midodrine Hcl 5 Mg Tablet 5 Mg PO TID hold for bp >160 systolic Vitals/I & O Vital Sign - Last 24 Hours 12/17/17 12/17/17 12/17/17 12/17/17 13:33 15:00 19:20 19:55 Temp 98.0 98.2 98.0 98.2 Pulse 86 86 90 Resp 18 20 B/P (MAP) 104/67 98/69 (79) 101/65 (77) Pulse Ox 96 98 O2 Delivery Room Air Room Air Room Air 12/17/17 12/18/17 12/18/17 12/18/17 23:20 03:25 07:00 08:00 Temp 98.1 98.5 97.8 98.1 98.5 97.8 Pulse 83 78 78 Resp 18 18 18 B/P (MAP) 101/69 (80) 109/71 (84) 111/70 (84) Pulse Ox 96 97 96 O2 Delivery Room Air Room Air Room Air Room Air 12/18/17 12/18/17 08:53 11:00 Temp 98.1 98.1 Pulse 78 78 Resp 16 B/P (MAP) 111/70 98/74 (82) Pulse Ox 97 O2 Delivery Room Air Intake and Output 12/17/17 12/17/17 12/18/17 15:00 23:00 07:00 Intake Total 50 ml 1160 ml Output Total 200 ml Balance 50 ml 960 ml MAURY MCMULLEN MD Dec 18, 2017 12:18
[2017-12-18] MEDS ORDERED: GADOBUTROL 7.5 MMOL/7.5 ML VIAL IV ONE (13:30)
--- NOTE | 2017-12-18 13:36 | PDOC2 ---
PALLIATIVE CARE Palliative Care Note Palliative Care Consult requested by Abena to address goals of care. Patient alert. Denies pain. Confused. Not sure why he is in the hospital. Has had a "little cancer:" Spoke with Adam/nephew. States he is DPOA along with his sister. They are aware of his medical diagnosis. Requested copy of POA document. Plan family meeting tomorrow at 1100. RUFUS JUAREZ Dec 18, 2017 13:36
--- NOTE | 2017-12-18 14:01 | RAD ---
MRI Brain without contrast History: Lung cancer Technique: Multiplanar, multisequential noncontrast MR imaging was performed of the brain. However only a few of the image sequences were obtained, entirety of the exam not completed. Patient did not receive contrast. Contrast: None Comparison: None Findings: There is some motion degradation. There is no restricted diffusion suggestive of recent infarct or cytotoxic edema. There is mild generalized supratentorial atrophy, ventricular size proportionate to the sulcal spaces. There is cavum septum pellucidum. There is very minimal T2 and FLAIR hyperintense signal near the bilateral frontal horns and left occipital horn. Allowing for motion, there is no convincing intra-axial mass effect. Appearance of mild increased FLAIR signal in subdural location along the right lateral convexity is otherwise difficult to accurately characterize, on T2 sequence appearance of some bridging veins, greatest thickness about 0.3 cm. There is patchy very minimal ethmoid air cell mucosal thickening, also mild right inferior maxillary sinus mucosal thickening. Mastoid air cells are overall aerated. Cerebellar tonsils are normal in location. There is no mild nonspecific heterogeneity of the marrow of the clivus, no expansion. Impression: 1. Enteric exam was not completed, no contrast given and there is motion degradation. There is no significant intracranial mass effect. Very minimal T2 and FLAIR hyperintense signal of the supratentorial parenchyma is nonspecific, may be due to chronic microvascular ischemic disease. There is generalized supratentorial involutional change. There is mild subdural signal change along the right convexity possibly sequela of older subdural hematoma or effusion although on T2 sequence appearance of some bridging veins. Electronically signed by: Pollo Domínguez MD (12/18/2017 1:58 PM) [email or web address]
[2017-12-18 15:00] VITALS: BP 119/79
[2017-12-18 19:53] VITALS: BP 108/76
[2017-12-18] MEDS: MIRTAZAPINE 7.5 MG TABLET. PO SCH (21:00)
[2017-12-18] MEDS: PYRIDOXINE 50 MG TABLET. PO SCH (21:00)
[2017-12-18] MEDS: SENNOSIDES 8.6 MG TABLET PO SCH (21:00)
[2017-12-18] MEDS: ENOXAPARIN 40 MG/0.4 ML SYRINGE. SQ SCH (22:28)
[2017-12-18 23:54] VITALS: BP 118/75
[2017-12-19 03:54] VITALS: BP 116/71
[2017-12-19] MEDS: AMINO AC 3%/ELECTROLYTE/GLYCER 1,000 ML IV SCH ×2 (05:03→23:33)
[2017-12-19] MEDS: MIDODRINE 5 MG TABLET PO SCH ×3 (07:00→18:00)
[2017-12-19] MEDS: SUCRALFATE 1 GM TABLET. PO SCH ×4 (07:30→21:00)
[2017-12-19] MEDS: PANTOPRAZOLE 40 MG TABLET.DR. PO SCH (07:30)
[2017-12-19 07:45] VITALS: BP 112/74
[2017-12-19] MEDS: FLUTICASONE 50MCG/NASAL SPRAY 16GM BOTTLE. NS SCH ×2 (08:57→21:00)
[2017-12-19] MEDS: DOCUSATE SODIUM 100 MG CAPSULE. PO SCH ×2 (08:58→21:00)
[2017-12-19] MEDS: DICLOFENAC SODIUM 1% TOPICAL GEL 100GM TUBE. TP SCH ×4 (08:58→21:00)
[2017-12-19] MEDS: GABAPENTIN 100 MG CAPSULE. PO SCH ×3 (08:58→21:00)
[2017-12-19] MEDS: MEGESTROL 20 MG TABLET. PO SCH (08:58)
[2017-12-19] MEDS: FOLIC ACID 1 MG TABLET. PO SCH (08:58)
[2017-12-19] MEDS: LIDOCAINE (700MG/PATCH) PATCH. TD SCH (08:58)
--- NOTE | 2017-12-19 09:19 | PDOC ---
PROGRESS NOTES Chief Complaint Chief Complaint acute metabolic encephalopathy, NOS Metastatic lung cancer, recently diagnosed, undergoing chemotherapy [facility], unsure if mets to brain Anemia of cancer High fall risk Encephalopathy, multifactorial Franco thrive symptoms Full code Adverse reaction to Ativan- - too much sedation History of Present Illness History of Present Illness on PPN DVT ppx Supportive meds family meeting today, I recommend discharge to residential with hospice. I had discussed with DPOA yesterday Full code, Palliative care to address Vitals Vitals Vital Signs Date Time Temp Pulse Resp B/P (MAP) Pulse Ox O2 Delivery O2 Flow Rate FiO2 12/19/17 08:00 Room Air 12/19/17 07:45 97.5 75 18 112/74 (87) 99 97.5 Physical Exam General: Alert, No acute distress, Other (pleasant, smiling, not in distress, but some element of dementia may be) Heart: Regular rate Lungs: Other Abdomen: Normal bowel sounds, Soft, No tenderness, No hepatosplenomegaly, No masses Extremities: No clubbing, No cyanosis, No edema, Normal pulses, No tenderness/ swelling Skin: No rashes, No breakdown, No significant lesion Assessment and Plan Assessmemt and Plan Problems Medical Problems: (1) Altered mental status Status: Acute (2) Generalized weakness Status: Acute (3) History of cancer Status: Acute Comment Review of Relevant I have reviewed the following items violet (where applicable) has been applied. Medications Current Medications Sodium Chloride 1,000 ml @ 1,000 mls/hr 1X ONCE IV Last administered on at 21:53; Start 12/16/17 at 21:15; Stop 12/16/17 at 22:51; Status DC Sodium Chloride (NORMAL SALINE FLUSH for STERILE FIELD) 10 ml STK-MED ONCE .ROUTE ; Start 12/16/17 at 21:31; Stop 12/16/17 at 21:32; Status DC Lorazepam (Ativan) 1 mg 1X ONCE IV Last administered on 12/16/17at 22:46; Start 12/16/17 at 22:30; Stop 12/16/17 at 22:51; Status DC Ondansetron HCl (Zofran) 4 mg PRN Q8HRS PRN IV NAUSEA/VOMITING 1st choice; Start 12/17/17 at 00:15; Stop 12/17/17 at 09:19; Status DC Ondansetron HCl (Zofran) 4 mg PRN Q6HRS PRN IV NAUSEA/VOMITING 1st choice; Start 12/17/17 at 09:30 Acetaminophen (Tylenol) 650 mg PRN Q6HRS PRN PO MILD PAIN; Start 12/17/17 at 09 :30 Acetaminophen/ Codeine Phosphate (Tylenol #3) 1 tab PRN Q6HRS PRN PO MODERATE PAIN; Start 12/17/17 at 09:30; Stop 12/17/17 at 14:14; Status DC Ibuprofen (Motrin) 600 mg PRN Q6HRS PRN PO INFLAMMATION; Start 12/17/17 at 09: 30 Cyclobenzaprine HCl (Flexeril) 10 mg Q8HRS PRN PO MUSCLE SPASMS; Start at 09:30 Diclofenac Sodium (Voltaren) 1 dee QID TP ; Start 12/17/17 at 13:00 Docusate Sodium (Colace) 100 mg BID PO Last administered on 12/18/17at 08:53; Start 12/17/17 at 10:00 Folic Acid (Folic Acid) 1 mg DAILY PO Last administered on 12/18/17at 08:53; Start 12/17/17 at 10:00 Gabapentin (Neurontin) 200 mg TID PO Last administered on 12/18/17at 17:27; Start 12/17/17 at 10:00 Acetaminophen/ Hydrocodone Bitart (Lortab 5/325) 1 tab PRN Q6HRS PRN PO MODERATE-SEVERE PAIN; Start 12/17/17 at 09:30 Lorazepam (Ativan) 0.5 mg PRN Q6HRS PRN PO ANXIETY; Start 12/17/17 at 09:30; Stop 12/17/17 at 14:14; Status DC Polyethylene Glycol (miraLAX Powder BULK BOTTLE) 17 gm PRN Q6HRS PRN PO CONSTIPATION; Start 12/17/17 at 09:30 Fluticasone Propionate (Flonase) 1 spray BID NS Last administered on 12/19/17at 08:57; Start 12/17/17 at 10:00 Lidocaine (Lidoderm) 1 patch DAILY TD ; Start 12/17/17 at 10:00 Non-Formulary Medication (Melatonin/ Pyridoxine Hcl (B6) (Melatonin 5 Mg Tablet) ) 1 tab QHS PRN PO INSOMNIA; Start 12/17/17 at 09:30; Status UNV Midodrine (Proamatine) 5 mg [id number] PO Last administered on 12/18/17at 08:53; Start 12/17/17 at 13:00 Mirtazapine (Remeron) 7.5 mg QHS PO Last administered on 12/17/17at 20:16; Start 12/17/17 at 21:00 Ondansetron HCl (Zofran Odt) 4 mg PRN Q6HRS PRN PO NAUSEA/VOMITING; Start 12/17 at 09:45 Pantoprazole Sodium (Protonix) 40 mg DAILYAC PO Last administered on 12/18/17at 08:54; Start 12/17/17 at 11:30 Sennosides (Senna) 17.2 mg QHS PO ; Start 12/17/17 at 21:00 Sucralfate (Carafate) 1 gm QIDACHS PO Last administered on 12/18/17at 17:27; Start 12/17/17 at 11:30 Pyridoxine HCl (Vitamin B-6) 50 mg QHS PO Last administered on 12/17/17at 20:19 ; Start 12/17/17 at 21:00 Amino Acids/ Glycerin/ Electrolytes 1,000 ml @ 80 mls/hr [id number] IV Last administered on 12/19/17at 05:03; Start 12/17/17 at 15:00 Megestrol Acetate (Megace) 20 mg DAILY PO Last administered on 12/18/17at 08:53 ; Start 12/17/17 at 14:00 Enoxaparin Sodium (Lovenox 40mg Syringe) 40 mg Q24H SQ Last administered on at 22:28; Start 12/17/17 at 21:00 Gadobutrol (Gadavist) 7.5 mmol 1X ONCE IV ; Start 12/18/17 at 13:30; Stop 12/18 at 13:31; Status DC Active Scripts Active Reported Cyclobenzaprine Hcl 10 Mg Tablet 1 Tab PO Q8HRS PRN [place] 5-325 Tablet (Acetaminophen/Hydrocodone Bitart) 1 Each Tablet 1 Tab PO PRN Q6HRS PRN Melatonin 5 Mg Tablet (Melatonin/Pyridoxine Hcl (B6)) 1 Each Tablet 1 Tab PO QHS PRN Zofran (Ondansetron Hcl) 4 Mg Tablet 1 Tab PO Q6HRS PRN Lorazepam 0.5 Mg Tablet 1 Tab PO Q6HRS PRN Polyethylene Glycol 3350 255 Gm Powder 17 Gm PO Q6HRS PRN Senna (Sennosides) 8.6 Mg Tablet 17.6 Mg PO QHS Sucralfate 1 Gm Tablet 1 Tab PO QID Mirtazapine 15 Mg Tablet 0.5 Tab PO QHS Flonase Allergy Relief (Fluticasone Propionate) 9.9 Ml [place].susp 2 Sprays NS BID Voltaren (Diclofenac Sodium) 100 Gm Gel..gram. 1 Gm TP QID Protonix (Pantoprazole Sodium) 20 Mg Tablet.dr 2 Tab PO DAILY Folic Acid 1 Mg Tablet 1 Tab PO DAILY Gabapentin 100 Mg Capsule 200 Mg PO TID Lidocaine 1 Each Adh..patch 1 Each TP DAILY 5% patch apply to upper back Docusate Sodium 100 Mg Capsule 1 Cap PO BID Midodrine Hcl 5 Mg Tablet 5 Mg PO TID hold for bp >160 systolic Vitals/I & O Vital Sign - Last 24 Hours 12/18/17 12/18/17 12/18/17 12/18/17 11:00 15:00 18:00 19:53 Temp 98.1 98.2 97.5 98.1 98.2 97.5 Pulse 78 77 77 76 Resp 16 16 16 B/P (MAP) 98/74 (82) 119/79 (92) 119/79 108/76 (87) Pulse Ox 97 98 97 O2 Delivery Room Air Room Air Room Air 12/18/17 12/18/17 12/19/17 12/19/17 20:00 23:54 03:54 07:45 Temp 97.4 97.8 97.5 97.4 97.8 97.5 Pulse 83 72 75 Resp 16 16 18 B/P (MAP) 118/75 (89) 116/71 (86) 112/74 (87) Pulse Ox 98 98 99 O2 Delivery Room Air Room Air Room Air Room Air 12/19/17 08:00 O2 Delivery Room Air Intake and Output 12/18/17 12/18/17 12/19/17 15:00 23:00 07:00 Intake Total 1050 ml Balance 1050 ml Nutrition Consultation Dietary Evaluation: Recommendations by RD: Increase Calorie Intake, Protein supplementation, PPN/ TPN Comments: ensure enlive bid ensure pudding bid ppn @ 80 ml/ hr day 2- continue Expected Outcomes/Goals: to meet > 75% est nutr needs via po intake Malnutrition Findings: Food and Nutrition Intake (Mod: <75% est energy req 7days Weight Status: Overweight MAURY MCMULLEN MD Dec 19, 2017 09:19
[2017-12-19 11:26] VITALS: BP 118/73
[2017-12-19] MEDS ORDERED: LORazepam INTENSOL 2 MG/ML ORAL.CONC SL PRN (14:00)
[2017-12-19 15:00] VITALS: BP 111/78
--- NOTE | 2017-12-19 15:44 | PDOC2 ---
PALLIATIVE CARE Palliative Care Note Palliative Care 11am. Patient alert. Visiting with family. Received permission to speak with Adam/nephew Spoke with Adam and patient's niece Jhonatan per phone [phone]. Copy of AD and POA reviewed and copy was placed on record. Reviewed medical condition; Stage IV Cancer --metastatic to lung. Adenocarcinoma diagnosed in October 2017 (See notes from [facility]) Has received 2 doses of chemotherapy. Was transferred from [facility] where he was there for rehabilitation. Declined, was not eating therefor transferred to [facility] for feeding issues. Adam did not want any other treatment per notes Per Adam, he was provided information from other resources that patient had been declining cognitively for past 1.5 to 2 years. Patient did not follow through with imaging as ordered (was told financial issues) Significant weight loss (?40#s) noted in October 2017. Patient reported problems swallowing [facility]November 19 2017 Bx of Lymph node right supraclavicular showed Metastatic non-small cell carcinoma. Pleural fluid also reported metastatic adenocarcinoma. [place] Drain placed 11/22 with administration of Carbo/alimta pm 11/22 as well Adam and Jhonatan request to follow through with Oncology Consult. Discussed Code Status; Discussed risks and benefits of resuscitation in patients with advanced cancer. Family wishes to continue with Full Code Status until they can discuss with other family members. Discussed option of comfort care and Hospice Support. Family wants more information from oncology before making decisions. 1215 Dr. Oreilly consulted-- Met with patient and Adam. No chemotherapy recommended. Hospice recommended. Per Adam patient become agitated because of this information. Adam verbally abusive towards PC nurse ---stating that patient should not have been told of this diagnosis/prognosis. Patient was calmed with verbal support. Given Ativan 1mg SL per order with good response. 1530 Spoke with [facility]; Reported patient bolus holding and pocketing R/T cognitive deficit. (See Notes and recommendations) Plan: Awaiting family decisions regarding goals and Code Status RUFUS JUAREZ Dec 19, 2017 15:44
[2017-12-19] MEDS ORDERED: HALOPERIDOL LACTATE 5 MG/ML VIAL. IVP ONE (17:00)
[2017-12-19] MEDS: LORazepam INTENSOL 2 MG/ML ORAL.CONC SL PRN (18:39)
[2017-12-19 19:53] VITALS: BP 94/73
[2017-12-19] MEDS: PYRIDOXINE 50 MG TABLET. PO SCH (21:00)
[2017-12-19] MEDS: SENNOSIDES 8.6 MG TABLET PO SCH (21:00)
[2017-12-19] MEDS: ENOXAPARIN 40 MG/0.4 ML SYRINGE. SQ SCH (21:00)
[2017-12-19] MEDS: MIRTAZAPINE 7.5 MG TABLET. PO SCH (21:00)
--- NOTE | 2017-12-19 21:03 | CONS ---
DATE OF CONSULTATION: 12/19/2017 TYPE OF REPORT: Medical oncology consultation. CONSULTATION REQUESTING PHYSICIAN: Nabil Joiner M.D. REASON FOR CONSULTATION: Stage 4 lung cancer. HISTORY OF PRESENT ILLNESS: The patient is a 67-year-old gentleman who was initially admitted to [facility] on 11/13/2017 with confusion of 5-6 month duration and anorexia and a 40-pound weight loss. CT scan of the chest, abdomen and pelvis revealed a 5 cm small bowel mass with necrotic abdominal adenopathy and as well as left pleural effusion. PET scan showed a large mass in the right lower neck displacing the trachea and esophagus and mediastinal adenopathy and a very large left pleural effusion with carcinomatosis and small bowel mass. MRI showed mild generalized cerebral atrophy. Supraclavicular lymph node biopsy revealed adenocarcinoma consistent with nonsmall-cell lung cancer. Molecular testing was negative. Left pleural effusion revealed metastatic adenocarcinoma and the patient had a [place] drain placed. He was evaluated by Dr. Doris Rendon at [facility] and started on chemotherapy with carboplatin and Alimta while inpatient on 11/22/2017. PD-L1 testing revealed that the PD-L1 was positive in 95% of the tumor cells. He was admitted to [facility] on 12/17/2017 because his functional status has declined. He has not been eating and he was also declining cognitively and hence he was transferred to [facility]. I was asked to see the patient for further evaluation. I also discussed the case with Dr. Christie Espinal and with Pat from Palliative Care. PAST MEDICAL HISTORY: Hypertension and anemia. FAMILY HISTORY: The patient's brother had lung cancer. SOCIAL HISTORY: Never smoker per records. REVIEW OF SYSTEMS: Twelve-point review of system was performed. Pertinent positives are mentioned in the history of present illness. Rest of the system review is negative. PHYSICAL EXAMINATION: GENERAL APPEARANCE: The patient is a 67-year-old gentleman who is well developed and in no acute cardiorespiratory distress. VITAL SIGNS: Blood pressure 111/78 and temperature 98.2. HEENT: Head: Atraumatic and normocephalic. Eyes: No icterus. NECK: Supple. CHEST: Bilaterally symmetrical. HEART: S1 and S2 normal. ABDOMEN: Soft and nontender. CENTRAL NERVOUS SYSTEM: No focal deficits. He is alert and awake. MUSCULOSKELETAL: No joint effusions. PSYCHOLOGIC: He has a flat affect. LYMPHATICS: No lymphadenopathy. LABORATORY DATA: WBC 9.3, hemoglobin 12.4 and platelet count is 261. IMPRESSION AND PLAN: 1. Stage 4 nonsmall-cell lung cancer, adenocarcinoma with large right supraclavicular mass, mediastinal lymphadenopathy, left pleural effusion, left pleural carcinomatosis with necrotic abdominal mass and lymphadenopathy. PD-L1 testing was positive at 95%. He was given chemotherapy with carboplatin and Alimta at [facility] on 11/22/2017 with plans to add Keytruda with the second cycle of chemotherapy. However, his functional status and cognitive status continue to decline. He has not been eating well and hence he was brought to [facility]. I discussed in detail with the patient and his nephew. The patient's ECOG performance status is 3. In view of declining functional status, I have recommended to stop chemotherapy and to proceed with hospice. The patient's nephew, Adam will discuss with the rest of the family. I also discussed with Pat from Palliative Care. I also notified the patient's primary oncologist, Dr. Doris Rendon. 2. Altered mental status. The patient has cognitive decline for the last 6 months. MRI is negative for metastasis. 3. Anemia, mild. Hemoglobin 12.4. Monitor. VERITO HEARD MD DR: DAIJA/aubrey JOB#: [id number] / [id number] LAZARUS
[2017-12-19 23:00] VITALS: BP 116/77
[2017-12-20 03:06] VITALS: BP 94/56
[2017-12-20 07:00] VITALS: BP 115/78
[2017-12-20] MEDS: MIDODRINE 5 MG TABLET PO SCH ×3 (07:00→18:00)
[2017-12-20] MEDS: SUCRALFATE 1 GM TABLET. PO SCH ×4 (07:30→21:00)
--- NOTE | 2017-12-20 08:42 | PDOC ---
PROGRESS NOTES Subjective Subjective HPI - f/u of Stage 4 nonsmall-cell lung cancer, adenocarcinoma with large right supraclavicular mass, mediastinal lymphadenopathy, left pleural effusion, left pleural carcinomatosis with necrotic abdominal mass and lymphadenopathy. ROS - no CP Objective Objective Vital Signs Date Time Temp Pulse Resp B/P (MAP) Pulse Ox O2 Delivery O2 Flow Rate FiO2 12/20/17 08:02 Room Air 12/20/17 07:00 97.4 86 20 115/78 (90) 100 97.4 Intake and Output 12/20/17 07:00 Intake Total 50 ml Balance 50 ml Intake Oral 50 ml # Voids 8 Physical Exam Heart: Normal S1, Normal S2 General: Alert, No acute distress Lungs: Clear to auscultation Assessment Assessment Problems Medical Problems: (1) Altered mental status Status: Acute (2) Generalized weakness Status: Acute (3) History of cancer Status: Acute IMPRESSION AND PLAN: 1. Stage 4 nonsmall-cell lung cancer, adenocarcinoma with large right supraclavicular mass, mediastinal lymphadenopathy, left pleural effusion, left pleural carcinomatosis with necrotic abdominal mass and lymphadenopathy. PD-L1 testing was positive at 95%. He was given chemotherapy with carboplatin and Alimta at [facility] on 11/22/2017 with plans to add Keytruda with the second cycle of chemotherapy. However, his functional status and cognitive status continue to decline. He has not been eating well and hence he was brought to [facility]. I discussed in detail with the patient and his nephew. The patient's ECOG performance status is 3. In view of declining functional status, I have recommended to stop chemotherapy and to proceed with hospice. The patient's nephew, Adam will discuss with the rest of the family. I also discussed with Pat from Palliative Care. I also notified the patient's primary oncologist, Dr. Doris Rendon who agrees with hospice recommendations. 2. Altered mental status. The patient has cognitive decline for the last 6 months. MRI is negative for metastasis. 3. Anemia, mild. Hemoglobin 12.4. Monitor. Comment Review of Relevant I have reviewed the following items violet (where applicable) has been applied. Medications Current Medications Sodium Chloride 1,000 ml @ 1,000 mls/hr 1X ONCE IV Last administered on at 21:53; Start 12/16/17 at 21:15; Stop 12/16/17 at 22:51; Status DC Sodium Chloride (NORMAL SALINE FLUSH for STERILE FIELD) 10 ml [place]-MED ONCE .ROUTE ; Start 12/16/17 at 21:31; Stop 12/16/17 at 21:32; Status DC Lorazepam (Ativan) 1 mg 1X ONCE IV Last administered on 12/16/17at 22:46; Start 12/16/17 at 22:30; Stop 12/16/17 at 22:51; Status DC Ondansetron HCl (Zofran) 4 mg PRN Q8HRS PRN IV NAUSEA/VOMITING 1st choice; Start 12/17/17 at 00:15; Stop 12/17/17 at 09:19; Status DC Ondansetron HCl (Zofran) 4 mg PRN Q6HRS PRN IV NAUSEA/VOMITING 1st choice; Start 12/17/17 at 09:30 Acetaminophen (Tylenol) 650 mg PRN Q6HRS PRN PO MILD PAIN; Start 12/17/17 at 09 :30 Acetaminophen/ Codeine Phosphate (Tylenol #3) 1 tab PRN Q6HRS PRN PO MODERATE PAIN; Start 12/17/17 at 09:30; Stop 12/17/17 at 14:14; Status DC Ibuprofen (Motrin) 600 mg PRN Q6HRS PRN PO INFLAMMATION; Start 12/17/17 at 09: 30 Cyclobenzaprine HCl (Flexeril) 10 mg Q8HRS PRN PO MUSCLE SPASMS; Start at 09:30 Diclofenac Sodium (Voltaren) 1 dee QID TP ; Start 12/17/17 at 13:00 Docusate Sodium (Colace) 100 mg BID PO Last administered on 12/18/17at 08:53; Start 12/17/17 at 10:00 Folic Acid (Folic Acid) 1 mg DAILY PO Last administered on 12/18/17at 08:53; Start 12/17/17 at 10:00 Gabapentin (Neurontin) 200 mg TID PO Last administered on 12/18/17at 17:27; Start 12/17/17 at 10:00 Acetaminophen/ Hydrocodone Bitart (Lortab 5/325) 1 tab PRN Q6HRS PRN PO MODERATE-SEVERE PAIN; Start 12/17/17 at 09:30 Lorazepam (Ativan) 0.5 mg PRN Q6HRS PRN PO ANXIETY; Start 12/17/17 at 09:30; Stop 12/17/17 at 14:14; Status DC Polyethylene Glycol (miraLAX Powder BULK BOTTLE) 17 gm PRN Q6HRS PRN PO CONSTIPATION; Start 12/17/17 at 09:30 Fluticasone Propionate (Flonase) 1 spray BID NS Last administered on 12/19/17 08:57; Start 12/17/17 at 10:00 Lidocaine (Lidoderm) 1 patch DAILY TD ; Start 12/17/17 at 10:00 Non-Formulary Medication (Melatonin/ Pyridoxine Hcl (B6) (Melatonin 5 Mg Tablet) ) 1 tab QHS PRN PO INSOMNIA; Start 12/17/17 at 09:30; Status UNV Midodrine (Proamatine) 5 mg [id number] PO Last administered on 12/18/17 08:53; Start 12/17/17 at 13:00 Mirtazapine (Remeron) 7.5 mg QHS PO Last administered on 12/17/17at 20:16; Start 12/17/17 at 21:00 Ondansetron HCl (Zofran Odt) 4 mg PRN Q6HRS PRN PO NAUSEA/VOMITING; Start 12/17 at 09:45 Pantoprazole Sodium (Protonix) 40 mg DAILYAC PO Last administered on 12/18/17at 08:54; Start 12/17/17 at 11:30 Sennosides (Senna) 17.2 mg QHS PO ; Start 12/17/17 at 21:00 Sucralfate (Carafate) 1 gm QIDACHS PO Last administered on 12/18/17at 17:27; Start 12/17/17 at 11:30 Pyridoxine HCl (Vitamin B-6) 50 mg QHS PO Last administered on 12/17/17 20:19 ; Start 12/17/17 at 21:00 Amino Acids/ Glycerin/ Electrolytes 1,000 ml @ 80 mls/hr [id number] IV Last administered on 12/19/17at 23:33; Start 12/17/17 at 15:00 Megestrol Acetate (Megace) 20 mg DAILY PO Last administered on 9/19/18at 08:53 ; Start 12/17/17 at 14:00 Enoxaparin Sodium (Lovenox 40mg Syringe) 40 mg Q24H SQ Last administered on at 22:28; Start 12/17/17 at 21:00 Gadobutrol (Gadavist) 7.5 mmol 1X ONCE IV ; Start 12/18/17 at 13:30; Stop 12/18 at 13:31; Status DC Lorazepam (Ativan) 1 mg PRN Q8HRS PRN IV ANXIETY / AGITATION; Start 12/19/17 at 14:00; Status Cancel Lorazepam (Ativan Intensol) 1 mg PRN Q8HRS PRN SL ANXIETY / AGITATION Last administered on 12/19/17at 14:09; Start 12/19/17 at 14:00; Stop 12/19/17 at 16:53 ; Status DC Haloperidol Lactate (Haldol Inj) 2 mg 1X ONCE IVP Last administered on at 17:13; Start 12/19/17 at 17:00; Stop 12/19/17 at 17:01; Status DC Lorazepam (Ativan Intensol) 2 mg PRN Q2HR PRN SL ANXIETY / AGITATION Last administered on 12/19/17at 18:39; Start 12/19/17 at 17:00 Active Scripts Active Reported Cyclobenzaprine Hcl 10 Mg Tablet 1 Tab PO Q8HRS PRN [place] 5-325 Tablet (Acetaminophen/Hydrocodone Bitart) 1 Each Tablet 1 Tab PO PRN Q6HRS PRN Melatonin 5 Mg Tablet (Melatonin/Pyridoxine Hcl (B6)) 1 Each Tablet 1 Tab PO QHS PRN Zofran (Ondansetron Hcl) 4 Mg Tablet 1 Tab PO Q6HRS PRN Lorazepam 0.5 Mg Tablet 1 Tab PO Q6HRS PRN Polyethylene Glycol 3350 255 Gm Powder 17 Gm PO Q6HRS PRN Senna (Sennosides) 8.6 Mg Tablet 17.6 Mg PO QHS Sucralfate 1 Gm Tablet 1 Tab PO QID Mirtazapine 15 Mg Tablet 0.5 Tab PO QHS Flonase Allergy Relief (Fluticasone Propionate) 9.9 Ml [place].susp 2 Sprays NS BID Voltaren (Diclofenac Sodium) 100 Gm Gel..gram. 1 Gm TP QID Protonix (Pantoprazole Sodium) 20 Mg Tablet.dr 2 Tab PO DAILY Folic Acid 1 Mg Tablet 1 Tab PO DAILY Gabapentin 100 Mg Capsule 200 Mg PO TID Lidocaine 1 Each Adh..patch 1 Each TP DAILY 5% patch apply to upper back Docusate Sodium 100 Mg Capsule 1 Cap PO BID Midodrine Hcl 5 Mg Tablet 5 Mg PO TID hold for bp >160 systolic Vitals/I & O Vital Sign - Last 24 Hours 12/19/17 12/19/17 12/19/17 12/19/17 11:26 15:00 19:53 20:00 Temp 97.7 98.2 97.7 98.2 Pulse 82 84 98 Resp 18 18 20 B/P (MAP) 118/73 (88) 111/78 (89) 94/73 (80) Pulse Ox 100 99 98 O2 Delivery Room Air Room Air Room Air Room Air 12/19/17 12/19/17 12/20/17 12/20/17 23:00 23:46 03:06 07:00 Temp 98.0 97.4 97.4 98.0 97.4 97.4 Pulse 89 91 86 Resp 18 16 20 20 B/P (MAP) 116/77 (90) 94/56 (69) 115/78 (90) Pulse Ox 97 98 100 O2 Delivery Room Air Room Air Room Air Room Air 12/20/17 08:02 O2 Delivery Room Air Intake and Output 12/19/17 12/19/17 12/20/17 15:00 23:00 07:00 Intake Total 50 ml 0 ml Balance 50 ml 0 ml Nutrition Consultation Dietary Evaluation: Recommendations by RD: Increase Calorie Intake, Protein supplementation, PPN/ TPN Comments: ensure enlive bid ensure pudding bid ppn @ 80 ml/ hr day 2- continue Expected Outcomes/Goals: to meet > 75% est nutr needs via po intake Malnutrition Findings: Food and Nutrition Intake (Mod: <75% est energy req 7days Weight Status: Overweight VERITO HEARD MD Dec 20, 2017 08:42
[2017-12-20] MEDS: DICLOFENAC SODIUM 1% TOPICAL GEL 100GM TUBE. TP SCH ×4 (09:00→21:00)
[2017-12-20] MEDS: LIDOCAINE (700MG/PATCH) PATCH. TD SCH (09:00)
[2017-12-20] MEDS ORDERED: HYDR-971 PO (09:35)
--- NOTE | 2017-12-20 09:36 | DISCH ---
DISCHARGE DISCHARGE INFORMATION: DISCHARGE DATE: Dec 20, 2017 FINAL DIAGNOSIS Problems Medical Problems: (1) Altered mental status Status: Acute (2) Generalized weakness Status: Acute (3) History of cancer Status: Acute HOSPICE: HOSPICE: Yes HOSPICE EVAL & TREAT: Yes FOLLOW-UP: PHYSICIAN FOLLOW-UP: hospice DISCHARGE MEDICATIONS: Home Meds Active Scripts Hydrocodone/Apap 5-325 ([place] 5-325 TABLET) 1 Each Tablet, 1 TAB PO PRN Q6HRS PRN for PAIN, #30 TAB 0 Refills Prov:MAURY MCMULLEN MD 12/20/17 Reported Medications Cyclobenzaprine Hcl (CYCLOBENZAPRINE HCL) 10 Mg Tablet, 1 TAB PO Q8HRS PRN for MUSCLE SPASMS, #90 TAB 12/17/17 Melatonin/Pyridoxine Hcl (B6) (MELATONIN 5 MG TABLET) 1 Each Tablet, 1 TAB PO QHS PRN for INSOMNIA, TAB 12/17/17 Ondansetron Hcl (ZOFRAN) 4 Mg Tablet, 1 TAB PO Q6HRS PRN for NAUSEA/VOMITING, # 20 TAB 12/17/17 Lorazepam (LORAZEPAM) 0.5 Mg Tablet, 1 TAB PO Q6HRS PRN for ANXIETY, #90 TAB 12/17/17 Polyethylene Glycol 3350 (POLYETHYLENE GLYCOL 3350) 255 Gm Powder, 17 GM PO Q6HRS PRN for CONSTIPATION, #527 GM 12/17/17 Sennosides (SENNA) 8.6 Mg Tablet, 17.6 MG PO QHS, TAB 12/17/17 Sucralfate (SUCRALFATE) 1 Gm Tablet, 1 TAB PO QID, #120 TAB 3 Refills 12/17/17 Mirtazapine (MIRTAZAPINE) 15 Mg Tablet, 0.5 TAB PO QHS, #30 TAB 3 Refills 12/17/17 Fluticasone Propionate (Flonase Allergy Relief) 9.9 Ml [place].susp, 2 SPRAYS NS BID, BOTTLE 12/17/17 Diclofenac Sodium (VOLTAREN) 100 Gm Gel..gram., 1 GM TP QID for pain, #100 GM 2 Refills 12/17/17 Pantoprazole Sodium (PROTONIX) 20 Mg Tablet.dr, 2 TAB PO DAILY, #30 TAB 12/17/17 Folic Acid (FOLIC ACID) 1 Mg Tablet, 1 TAB PO DAILY, #90 TAB 1 Refill 12/17/17 Gabapentin (GABAPENTIN) 100 Mg Capsule, 200 MG PO TID, CAP 12/17/17 Lidocaine (Lidocaine) 1 Each Adh..patch, 1 EACH TP DAILY, PATCH 5% patch apply to upper back 12/17/17 Docusate Sodium (DOCUSATE SODIUM) 100 Mg Capsule, 1 CAP PO BID, #30 CAP 12/17/17 Midodrine Hcl (MIDODRINE HCL) 5 Mg Tablet, 5 MG PO TID, TAB hold for bp >160 systolic 12/17/17 MAURY MCMULLEN MD Dec 20, 2017 09:36
[2017-12-20] MEDS ORDERED: LORA2ORA7 SL (10:05)
--- NOTE | 2017-12-20 10:06 | PDOC ---
PROGRESS NOTES Chief Complaint Chief Complaint acute metabolic encephalopathy, NOS Metastatic lung cancer, recently diagnosed, undergoing chemotherapy [facility], unsure if mets to brain Anemia of cancer High fall risk Full code now needs ativan, anxiety disorder History of Present Illness History of Present Illness on PPN DVT ppx Supportive meds family meeting today, [facility]. I had discussed with DPOA yesterday Full code, Palliative care to address Vitals Vitals Vital Signs Date Time Temp Pulse Resp B/P (MAP) Pulse Ox O2 Delivery O2 Flow Rate FiO2 12/20/17 08:02 Room Air 12/20/17 07:00 97.4 86 20 115/78 (90) 100 97.4 Physical Exam General: Alert, No acute distress Heart: Normal S1, Normal S2 Lungs: Other Abdomen: Normal bowel sounds, Soft, No tenderness, No hepatosplenomegaly, No masses Extremities: No clubbing, No cyanosis, No edema, Normal pulses, No tenderness/ swelling Skin: No rashes, No breakdown, No significant lesion Assessment and Plan Assessmemt and Plan Problems Medical Problems: (1) Altered mental status Status: Acute (2) Generalized weakness Status: Acute (3) History of cancer Status: Acute Comment Review of Relevant I have reviewed the following items violet (where applicable) has been applied. Medications Current Medications Sodium Chloride 1,000 ml @ 1,000 mls/hr 1X ONCE IV Last administered on at 21:53; Start 12/16/17 at 21:15; Stop 12/16/17 at 22:51; Status DC Sodium Chloride (NORMAL SALINE FLUSH for STERILE FIELD) 10 ml [place]-MED ONCE .ROUTE ; Start 12/16/17 at 21:31; Stop 12/16/17 at 21:32; Status DC Lorazepam (Ativan) 1 mg 1X ONCE IV Last administered on 12/16/17at 22:46; Start 12/16/17 at 22:30; Stop 12/16/17 at 22:51; Status DC Ondansetron HCl (Zofran) 4 mg PRN Q8HRS PRN IV NAUSEA/VOMITING 1st choice; Start 12/17/17 at 00:15; Stop 12/17/17 at 09:19; Status DC Ondansetron HCl (Zofran) 4 mg PRN Q6HRS PRN IV NAUSEA/VOMITING 1st choice; Start 12/17/17 at 09:30 Acetaminophen (Tylenol) 650 mg PRN Q6HRS PRN PO MILD PAIN; Start 12/17/17 at 09 :30 Acetaminophen/ Codeine Phosphate (Tylenol #3) 1 tab PRN Q6HRS PRN PO MODERATE PAIN; Start 12/17/17 at 09:30; Stop 12/17/17 at 14:14; Status DC Ibuprofen (Motrin) 600 mg PRN Q6HRS PRN PO INFLAMMATION; Start 12/17/17 at 09: 30 Cyclobenzaprine HCl (Flexeril) 10 mg Q8HRS PRN PO MUSCLE SPASMS; Start at 09:30 Diclofenac Sodium (Voltaren) 1 dee QID TP ; Start 12/17/17 at 13:00 Docusate Sodium (Colace) 100 mg BID PO Last administered on 12/18/17at 08:53; Start 12/17/17 at 10:00 Folic Acid (Folic Acid) 1 mg DAILY PO Last administered on 12/18/17at 08:53; Start 12/17/17 at 10:00 Gabapentin (Neurontin) 200 mg TID PO Last administered on 12/18/17at 17:27; Start 12/17/17 at 10:00 Acetaminophen/ Hydrocodone Bitart (Lortab 5/325) 1 tab PRN Q6HRS PRN PO MODERATE-SEVERE PAIN; Start 12/17/17 at 09:30 Lorazepam (Ativan) 0.5 mg PRN Q6HRS PRN PO ANXIETY; Start 12/17/17 at 09:30; Stop 12/17/17 at 14:14; Status DC Polyethylene Glycol (miraLAX Powder BULK BOTTLE) 17 gm PRN Q6HRS PRN PO CONSTIPATION; Start 12/17/17 at 09:30 Fluticasone Propionate (Flonase) 1 spray BID NS Last administered on 12/19/17at 08:57; Start 12/17/17 at 10:00 Lidocaine (Lidoderm) 1 patch DAILY TD ; Start 12/17/17 at 10:00 Non-Formulary Medication (Melatonin/ Pyridoxine Hcl (B6) (Melatonin 5 Mg Tablet) ) 1 tab QHS PRN PO INSOMNIA; Start 12/17/17 at 09:30; Status UNV Midodrine (Proamatine) 5 mg [id number] PO Last administered on 12/18/17at 08:53; Start 12/17/17 at 13:00 Mirtazapine (Remeron) 7.5 mg QHS PO Last administered on 12/17/17at 20:16; Start 12/17/17 at 21:00 Ondansetron HCl (Zofran Odt) 4 mg PRN Q6HRS PRN PO NAUSEA/VOMITING; Start 12/17 at 09:45 Pantoprazole Sodium (Protonix) 40 mg DAILYAC PO Last administered on 12/18/17at 08:54; Start 12/17/17 at 11:30 Sennosides (Senna) 17.2 mg QHS PO ; Start 12/17/17 at 21:00 Sucralfate (Carafate) 1 gm QIDACHS PO Last administered on 12/18/17at 17:27; Start 12/17/17 at 11:30 Pyridoxine HCl (Vitamin B-6) 50 mg QHS PO Last administered on 12/17/17at 20:19 ; Start 12/17/17 at 21:00 Amino Acids/ Glycerin/ Electrolytes 1,000 ml @ 80 mls/hr [id number] IV Last administered on 12/19/17at 23:33; Start 12/17/17 at 15:00 Megestrol Acetate (Megace) 20 mg DAILY PO Last administered on 12/18/17at 08:53 ; Start 12/17/17 at 14:00 Enoxaparin Sodium (Lovenox 40mg Syringe) 40 mg Q24H SQ Last administered on at 22:28; Start 12/17/17 at 21:00 Gadobutrol (Gadavist) 7.5 mmol 1X ONCE IV ; Start 12/18/17 at 13:30; Stop 12/18 at 13:31; Status DC Lorazepam (Ativan) 1 mg PRN Q8HRS PRN IV ANXIETY / AGITATION; Start 12/19/17 at 14:00; Status Cancel Lorazepam (Ativan Intensol) 1 mg PRN Q8HRS PRN SL ANXIETY / AGITATION Last administered on 12/19/17at 14:09; Start 12/19/17 at 14:00; Stop 12/19/17 at 16:53 ; Status DC Haloperidol Lactate (Haldol Inj) 2 mg 1X ONCE IVP Last administered on at 17:13; Start 12/19/17 at 17:00; Stop 12/19/17 at 17:01; Status DC Lorazepam (Ativan Intensol) 2 mg PRN Q2HR PRN SL ANXIETY / AGITATION Last administered on 12/19/17at 18:39; Start 12/19/17 at 17:00 Active Scripts Active Lorazepam Intensol (Lorazepam) 2 Mg/1 Ml Oral.conc 2 Mg SL PRN Q2HR PRN [place] 5-325 Tablet (Acetaminophen/Hydrocodone Bitart) 1 Each Tablet 1 Tab PO PRN Q6HRS PRN Reported Cyclobenzaprine Hcl 10 Mg Tablet 1 Tab PO Q8HRS PRN Melatonin 5 Mg Tablet (Melatonin/Pyridoxine Hcl (B6)) 1 Each Tablet 1 Tab PO QHS PRN Zofran (Ondansetron Hcl) 4 Mg Tablet 1 Tab PO Q6HRS PRN Lorazepam 0.5 Mg Tablet 1 Tab PO Q6HRS PRN Polyethylene Glycol 3350 255 Gm Powder 17 Gm PO Q6HRS PRN Senna (Sennosides) 8.6 Mg Tablet 17.6 Mg PO QHS Sucralfate 1 Gm Tablet 1 Tab PO QID Mirtazapine 15 Mg Tablet 0.5 Tab PO QHS Flonase Allergy Relief (Fluticasone Propionate) 9.9 Ml [place].susp 2 Sprays NS BID Voltaren (Diclofenac Sodium) 100 Gm Gel..gram. 1 Gm TP QID Protonix (Pantoprazole Sodium) 20 Mg Tablet.dr 2 Tab PO DAILY Folic Acid 1 Mg Tablet 1 Tab PO DAILY Gabapentin 100 Mg Capsule 200 Mg PO TID Lidocaine 1 Each Adh..patch 1 Each TP DAILY 5% patch apply to upper back Docusate Sodium 100 Mg Capsule 1 Cap PO BID Midodrine Hcl 5 Mg Tablet 5 Mg PO TID hold for bp >160 systolic Vitals/I & O Vital Sign - Last 24 Hours 12/19/17 12/19/17 12/19/17 12/19/17 11:26 15:00 19:53 20:00 Temp 97.7 98.2 97.7 98.2 Pulse 82 84 98 Resp 18 18 20 B/P (MAP) 118/73 (88) 111/78 (89) 94/73 (80) Pulse Ox 100 99 98 O2 Delivery Room Air Room Air Room Air Room Air 12/19/17 12/19/17 12/20/17 12/20/17 23:00 23:46 03:06 07:00 Temp 98.0 97.4 97.4 98.0 97.4 97.4 Pulse 89 91 86 Resp 18 16 20 20 B/P (MAP) 116/77 (90) 94/56 (69) 115/78 (90) Pulse Ox 97 98 100 O2 Delivery Room Air Room Air Room Air Room Air 12/20/17 08:02 O2 Delivery Room Air Intake and Output 12/19/17 12/19/17 12/20/17 15:00 23:00 07:00 Intake Total 50 ml 0 ml Balance 50 ml 0 ml Nutrition Consultation Dietary Evaluation: Recommendations by RD: Increase Calorie Intake, Protein supplementation, PPN/ TPN Comments: continue ensure enlive bid continue ensure pudding bid ppn @ 80 ml/ hr - continue Expected Outcomes/Goals: to meet > 75% est nutr needs via po intake Malnutrition Findings: Food and Nutrition Intake (Mod: <75% est energy req 7days Weight Status: Overweight MAURY MCMULLEN MD Dec 20, 2017 10:06
[2017-12-20 11:00] VITALS: BP 118/73
[2017-12-20] MEDS: MEGESTROL 20 MG TABLET. PO SCH (11:05)
[2017-12-20] MEDS: GABAPENTIN 100 MG CAPSULE. PO SCH ×3 (11:06→21:00)
[2017-12-20] MEDS: DOCUSATE SODIUM 100 MG CAPSULE. PO SCH ×2 (11:12→21:00)
[2017-12-20] MEDS: FOLIC ACID 1 MG TABLET. PO SCH (11:13)
[2017-12-20] MEDS: PANTOPRAZOLE 40 MG TABLET.DR. PO SCH (11:13)
[2017-12-20] MEDS: FLUTICASONE 50MCG/NASAL SPRAY 16GM BOTTLE. NS SCH ×2 (11:14→21:00)
[2017-12-20] MEDS: AMINO AC 3%/ELECTROLYTE/GLYCER 1,000 ML IV SCH (13:30)
[2017-12-20 15:00] VITALS: BP 102/60
--- NOTE | 2017-12-20 15:15 | PDOC2 ---
PALLIATIVE CARE Palliative Care Note Palliative Care Patient alert and pleasantly confused. Visiting with niale Jhonatan. Spoke with Jhonatan HERNANDEZ, Ibeth JIMENEZ and ;Adam HERNANDEZ per phone. Informed patient has been discharged. Recommendations for Custodial with Hospice Discussed options for care; Home---family states this is not an option vs Custodial with Hospice vs Custodial --supervisor intermediates care without Hospice. Jhonatan and Adam concerned that patient has not been offered options for feeding. Informed patient has been on PPN and oral feedings. Options were discussed for PEG tube vs TPN vs PPN again and per record by Dr Kraft Patient has been evaluated x2 for swallow (see notes) Jhonatan would like to consider PICC line for feedings. Informed that Custodial will consider feedings. Ibeth JIMENEZ provided options for [facility]. Family would like to visit these facilities. Discussed/recommended applying for Medicaid. Jhonatan stated she would pursue this option. Discussed Code Status: Jhonatan requests patient remain Full Code. Above reviewed with Dr. Espinal who will discuss with family. Ibeth will assist with discharge plan. RUFUS JUAREZ Dec 20, 2017 15:15
[2017-12-20 19:56] VITALS: BP 112/72
[2017-12-20] MEDS: ENOXAPARIN 40 MG/0.4 ML SYRINGE. SQ SCH (21:00)
[2017-12-20] MEDS: MIRTAZAPINE 7.5 MG TABLET. PO SCH (21:00)
[2017-12-20] MEDS: PYRIDOXINE 50 MG TABLET. PO SCH (21:00)
[2017-12-20] MEDS: SENNOSIDES 8.6 MG TABLET PO SCH (21:00)
[2017-12-20 23:26] VITALS: BP 122/71
[2017-12-21] MEDS: AMINO AC 3%/ELECTROLYTE/GLYCER 1,000 ML IV SCH ×3 (00:40→17:14)
[2017-12-21 03:13] VITALS: BP 118/70
[2017-12-21 07:00] VITALS: BP 109/71
[2017-12-21] MEDS: SUCRALFATE 1 GM TABLET. PO SCH ×4 (10:06→20:18)
[2017-12-21] MEDS: FOLIC ACID 1 MG TABLET. PO SCH (10:07)
[2017-12-21] MEDS: GABAPENTIN 100 MG CAPSULE. PO SCH ×3 (10:07→20:18)
[2017-12-21] MEDS: PANTOPRAZOLE 40 MG TABLET.DR. PO SCH (10:07)
[2017-12-21] MEDS: MEGESTROL 20 MG TABLET. PO SCH (10:07)
[2017-12-21] MEDS: MIDODRINE 5 MG TABLET PO SCH ×3 (10:07→18:00)
[2017-12-21] MEDS: DOCUSATE SODIUM 100 MG CAPSULE. PO SCH ×2 (10:07→20:18)
--- NOTE | 2017-12-21 10:07 | PDOC ---
PROGRESS NOTES Subjective Subjective HPI - f/u of Stage 4 nonsmall-cell lung cancer, adenocarcinoma with large right supraclavicular mass, mediastinal lymphadenopathy, left pleural effusion, left pleural carcinomatosis with necrotic abdominal mass and lymphadenopathy. ROS - no CP Objective Objective Vital Signs Date Time Temp Pulse Resp B/P (MAP) Pulse Ox O2 Delivery O2 Flow Rate FiO2 12/21/17 08:00 Room Air 12/21/17 07:00 98.1 85 16 109/71 (84) 98 98.1 Intake and Output 12/21/17 07:00 Intake Total 175 ml Balance 175 ml Intake Oral 175 ml # Voids 6 Physical Exam Heart: Normal S1, Normal S2 General: Alert, No acute distress Lungs: Clear to auscultation Assessment Assessment Problems Medical Problems: (1) Altered mental status Status: Acute (2) Generalized weakness Status: Acute (3) History of cancer Status: Acute IMPRESSION AND PLAN: 1. Stage 4 nonsmall-cell lung cancer, adenocarcinoma with large right supraclavicular mass, mediastinal lymphadenopathy, left pleural effusion, left pleural carcinomatosis with necrotic abdominal mass and lymphadenopathy. PD-L1 testing was positive at 95%. He was given chemotherapy with carboplatin and Alimta at [facility] on 11/22/2017 with plans to add Keytruda with the second cycle of chemotherapy. However, his functional status and cognitive status continue to decline. He has not been eating well and hence he was brought to [facility]. I discussed in detail with the patient and his nephew. The patient's ECOG performance status is 3-4. In view of declining functional status, I have recommended to stop chemotherapy and to proceed with hospice. The patient's nephew, Adam will discuss with the rest of the family. I also discussed with Pat from [facility]. I also notified the patient's primary oncologist, Dr. Doris Rendon who agrees with hospice recommendations. I d/w Pat, family has not made decision regarding hospice yet. 2. Altered mental status. The patient has cognitive decline for the last 6 months. MRI is negative for metastasis. 3. Anemia, mild. Hemoglobin 12.4. Monitor. Comment Review of Relevant I have reviewed the following items violet (where applicable) has been applied. Medications Current Medications Sodium Chloride 1,000 ml @ 1,000 mls/hr 1X ONCE IV Last administered on at 21:53; Start 12/16/17 at 21:15; Stop 12/16/17 at 22:51; Status DC Sodium Chloride (NORMAL SALINE FLUSH for STERILE FIELD) 10 ml [employer]-MED ONCE .ROUTE ; Start 12/16/17 at 21:31; Stop 12/16/17 at 21:32; Status DC Lorazepam (Ativan) 1 mg 1X ONCE IV Last administered on 12/16/17at 22:46; Start 12/16/17 at 22:30; Stop 12/16/17 at 22:51; Status DC Ondansetron HCl (Zofran) 4 mg PRN Q8HRS PRN IV NAUSEA/VOMITING 1st choice; Start 12/17/17 at 00:15; Stop 12/17/17 at 09:19; Status DC Ondansetron HCl (Zofran) 4 mg PRN Q6HRS PRN IV NAUSEA/VOMITING 1st choice; Start 12/17/17 at 09:30 Acetaminophen (Tylenol) 650 mg PRN Q6HRS PRN PO MILD PAIN; Start 12/17/17 at 09 :30 Acetaminophen/ Codeine Phosphate (Tylenol #3) 1 tab PRN Q6HRS PRN PO MODERATE PAIN; Start 12/17/17 at 09:30; Stop 12/17/17 at 14:14; Status DC Ibuprofen (Motrin) 600 mg PRN Q6HRS PRN PO INFLAMMATION; Start 12/17/17 at 09: 30 Cyclobenzaprine HCl (Flexeril) 10 mg Q8HRS PRN PO MUSCLE SPASMS; Start at 09:30 Diclofenac Sodium (Voltaren) 1 dee QID TP ; Start 12/17/17 at 13:00 Docusate Sodium (Colace) 100 mg BID PO Last administered on 12/20/17at 11:12; Start 12/17/17 at 10:00 Folic Acid (Folic Acid) 1 mg DAILY PO Last administered on 12/20/17at 11:13; Start 12/17/17 at 10:00 Gabapentin (Neurontin) 200 mg TID PO Last administered on 12/20/17at 11:06; Start 12/17/17 at 10:00 Acetaminophen/ Hydrocodone Bitart (Lortab 5/325) 1 tab PRN Q6HRS PRN PO MODERATE-SEVERE PAIN; Start 12/17/17 at 09:30 Lorazepam (Ativan) 0.5 mg PRN Q6HRS PRN PO ANXIETY; Start 12/17/17 at 09:30; Stop 12/17/17 at 14:14; Status DC Polyethylene Glycol (miraLAX Powder BULK BOTTLE) 17 gm PRN Q6HRS PRN PO CONSTIPATION; Start 12/17/17 at 09:30 Fluticasone Propionate (Flonase) 1 spray BID NS Last administered on 12/20/17at 11:14; Start 12/17/17 at 10:00 Lidocaine (Lidoderm) 1 patch DAILY TD ; Start 12/17/17 at 10:00 Non-Formulary Medication (Melatonin/ Pyridoxine Hcl (B6) (Melatonin 5 Mg Tablet) ) 1 tab QHS PRN PO INSOMNIA; Start 12/17/17 at 09:30; Status UNV Midodrine (Proamatine) 5 mg [id number] PO Last administered on 12/20/17at 13:34; Start 12/17/17 at 13:00 Mirtazapine (Remeron) 7.5 mg QHS PO Last administered on 12/17/17at 20:16; Start 12/17/17 at 21:00 Ondansetron HCl (Zofran Odt) 4 mg PRN Q6HRS PRN PO NAUSEA/VOMITING; Start 12/17 at 09:45 Pantoprazole Sodium (Protonix) 40 mg DAILYAC PO Last administered on 12/20/17at 11:13; Start 12/17/17 at 11:30 Sennosides (Senna) 17.2 mg QHS PO ; Start 12/17/17 at 21:00 Sucralfate (Carafate) 1 gm QIDACHS PO Last administered on 12/18/17at 17:27; Start 12/17/17 at 11:30 Pyridoxine HCl (Vitamin B-6) 50 mg QHS PO Last administered on 12/17/17at 20:19 ; Start 12/17/17 at 21:00 Amino Acids/ Glycerin/ Electrolytes 1,000 ml @ 80 mls/hr [id number] IV Last administered on 12/20/17at 13:30; Start 12/17/17 at 15:00 Megestrol Acetate (Megace) 20 mg DAILY PO Last administered on 12/20/17at 11:05 ; Start 12/17/17 at 14:00 Enoxaparin Sodium (Lovenox 40mg Syringe) 40 mg Q24H SQ Last administered on at 22:28; Start 12/17/17 at 21:00 Gadobutrol (Gadavist) 7.5 mmol 1X ONCE IV ; Start 12/18/17 at 13:30; Stop 12/18 at 13:31; Status DC Lorazepam (Ativan) 1 mg PRN Q8HRS PRN IV ANXIETY / AGITATION; Start 12/19/17 at 14:00; Status Cancel Lorazepam (Ativan Intensol) 1 mg PRN Q8HRS PRN SL ANXIETY / AGITATION Last administered on 12/19/17at 14:09; Start 12/19/17 at 14:00; Stop 12/19/17 at 16:53 ; Status DC Haloperidol Lactate (Haldol Inj) 2 mg 1X ONCE IVP Last administered on at 17:13; Start 12/19/17 at 17:00; Stop 12/19/17 at 17:01; Status DC Lorazepam (Ativan Intensol) 2 mg PRN Q2HR PRN SL ANXIETY / AGITATION Last administered on 12/19/17at 18:39; Start 12/19/17 at 17:00 Active Scripts Active Lorazepam Intensol (Lorazepam) 2 Mg/1 Ml Oral.conc 2 Mg SL PRN Q2HR PRN [place] 5-325 Tablet (Acetaminophen/Hydrocodone Bitart) 1 Each Tablet 1 Tab PO PRN Q6HRS PRN Reported Cyclobenzaprine Hcl 10 Mg Tablet 1 Tab PO Q8HRS PRN Melatonin 5 Mg Tablet (Melatonin/Pyridoxine Hcl (B6)) 1 Each Tablet 1 Tab PO QHS PRN Zofran (Ondansetron Hcl) 4 Mg Tablet 1 Tab PO Q6HRS PRN Lorazepam 0.5 Mg Tablet 1 Tab PO Q6HRS PRN Polyethylene Glycol 3350 255 Gm Powder 17 Gm PO Q6HRS PRN Senna (Sennosides) 8.6 Mg Tablet 17.6 Mg PO QHS Sucralfate 1 Gm Tablet 1 Tab PO QID Mirtazapine 15 Mg Tablet 0.5 Tab PO QHS Flonase Allergy Relief (Fluticasone Propionate) 9.9 Ml [place].susp 2 Sprays NS BID Voltaren (Diclofenac Sodium) 100 Gm Gel..gram. 1 Gm TP QID Protonix (Pantoprazole Sodium) 20 Mg Tablet.dr 2 Tab PO DAILY Folic Acid 1 Mg Tablet 1 Tab PO DAILY Gabapentin 100 Mg Capsule 200 Mg PO TID Lidocaine 1 Each Adh..patch 1 Each TP DAILY 5% patch apply to upper back Docusate Sodium 100 Mg Capsule 1 Cap PO BID Midodrine Hcl 5 Mg Tablet 5 Mg PO TID hold for bp >160 systolic Vitals/I & O Vital Sign - Last 24 Hours 12/20/17 12/20/17 12/20/17 12/20/17 11:00 13:34 15:00 19:56 Temp 97.4 98.0 98.0 97.4 98.0 98.0 Pulse 82 82 84 87 Resp 16 16 16 B/P (MAP) 118/73 (88) 118/73 102/60 (74) 112/72 (85) Pulse Ox 99 99 99 O2 Delivery Room Air Room Air Room Air 12/20/17 12/20/17 12/21/17 12/21/17 20:08 23:26 03:13 07:00 Temp 98.1 98.1 98.1 98.1 98.1 98.1 Pulse 89 85 85 Resp 16 16 16 B/P (MAP) 122/71 (88) 118/70 (86) 109/71 (84) Pulse Ox 98 98 98 O2 Delivery Room Air Room Air Room Air Room Air 12/21/17 08:00 O2 Delivery Room Air Intake and Output 12/20/17 12/20/17 12/21/17 15:00 23:00 07:00 Intake Total 175 ml Balance 175 ml Nutrition Consultation Dietary Evaluation: Recommendations by RD: Increase Calorie Intake, Protein supplementation, PPN/ TPN Comments: continue ensure enlive bid continue ensure pudding bid ppn @ 80 ml/ hr - continue Expected Outcomes/Goals: to meet > 75% est nutr needs via po intake Malnutrition Findings: Food and Nutrition Intake (Mod: <75% est energy req 7days Weight Status: Overweight VERITO HEARD MD Dec 21, 2017 10:07
[2017-12-21] MEDS: LIDOCAINE (700MG/PATCH) PATCH. TD SCH ×2 (10:09→10:20)
[2017-12-21] MEDS: HYDROcodone/APAP 5/325MG 1 TAB TABLET PO PRN (10:19)
[2017-12-21 11:00] VITALS: BP 99/71
[2017-12-21] MEDS: FLUTICASONE 50MCG/NASAL SPRAY 16GM BOTTLE. NS SCH ×2 (11:01→21:00)
[2017-12-21] MEDS: DICLOFENAC SODIUM 1% TOPICAL GEL 100GM TUBE. TP SCH ×4 (11:02→21:00)
[2017-12-21] MEDS ORDERED: POLYETHYLENE GLYCOL 3350 17 GM PACKET. PO PRN (13:30)
--- NOTE | 2017-12-21 13:55 | PDOC ---
PROGRESS NOTES Chief Complaint Chief Complaint acute metabolic encephalopathy, NOS Metastatic lung cancer, recently diagnosed, undergoing chemotherapy [facility], unsure if mets to brain Anemia of cancer High fall risk PRn has ativan, anxiety disorder now DNR, History of Present Illness History of Present Illness on PPN DVT ppx Supportive meds family meeting yesterday x2, I recommend discharge to longterm with hospice. Palliative care has been very helpful Vitals Vitals Vital Signs Date Time Temp Pulse Resp B/P (MAP) Pulse Ox O2 Delivery O2 Flow Rate FiO2 12/21/17 13:16 85 99/71 12/21/17 11:19 17 Room Air 12/21/17 11:00 97.4 99 97.4 Physical Exam General: Alert, No acute distress Heart: Normal S1, Normal S2 Lungs: Other Abdomen: Normal bowel sounds, Soft, No tenderness, No hepatosplenomegaly, No masses Extremities: No clubbing, No cyanosis, No edema, Normal pulses, No tenderness/ swelling Skin: No rashes, No breakdown, No significant lesion Assessment and Plan Assessmemt and Plan Problems Medical Problems: (1) Altered mental status Status: Acute (2) Generalized weakness Status: Acute (3) History of cancer Status: Acute Comment Review of Relevant I have reviewed the following items violet (where applicable) has been applied. Medications Current Medications Sodium Chloride 1,000 ml @ 1,000 mls/hr 1X ONCE IV Last administered on at 21:53; Start 12/16/17 at 21:15; Stop 12/16/17 at 22:51; Status DC Sodium Chloride (NORMAL SALINE FLUSH for STERILE FIELD) 10 ml STK-MED ONCE .ROUTE ; Start 12/16/17 at 21:31; Stop 12/16/17 at 21:32; Status DC Lorazepam (Ativan) 1 mg 1X ONCE IV Last administered on 12/16/17at 22:46; Start 12/16/17 at 22:30; Stop 12/16/17 at 22:51; Status DC Ondansetron HCl (Zofran) 4 mg PRN Q8HRS PRN IV NAUSEA/VOMITING 1st choice; Start 12/17/17 at 00:15; Stop 12/17/17 at 09:19; Status DC Ondansetron HCl (Zofran) 4 mg PRN Q6HRS PRN IV NAUSEA/VOMITING 1st choice; Start 12/17/17 at 09:30 Acetaminophen (Tylenol) 650 mg PRN Q6HRS PRN PO MILD PAIN; Start 12/17/17 at 09 :30 Acetaminophen/ Codeine Phosphate (Tylenol #3) 1 tab PRN Q6HRS PRN PO MODERATE PAIN; Start 12/17/17 at 09:30; Stop 12/17/17 at 14:14; Status DC Ibuprofen (Motrin) 600 mg PRN Q6HRS PRN PO INFLAMMATION; Start 12/17/17 at 09: 30 Cyclobenzaprine HCl (Flexeril) 10 mg Q8HRS PRN PO MUSCLE SPASMS; Start at 09:30 Diclofenac Sodium (Voltaren) 1 dee QID TP Last administered on 12/21/17at 13:16 ; Start 12/17/17 at 13:00 Docusate Sodium (Colace) 100 mg BID PO Last administered on 12/21/17at 10:07; Start 12/17/17 at 10:00 Folic Acid (Folic Acid) 1 mg DAILY PO Last administered on 12/21/17at 10:07; Start 12/17/17 at 10:00 Gabapentin (Neurontin) 200 mg TID PO Last administered on 12/21/17at 10:07; Start 12/17/17 at 10:00 Acetaminophen/ Hydrocodone Bitart (Lortab 5/325) 1 tab PRN Q6HRS PRN PO MODERATE-SEVERE PAIN Last administered on 12/21/17at 10:19; Start 12/17/17 at 09: 30 Lorazepam (Ativan) 0.5 mg PRN Q6HRS PRN PO ANXIETY; Start 12/17/17 at 09:30; Stop 12/17/17 at 14:14; Status DC Polyethylene Glycol (miraLAX Powder BULK BOTTLE) 17 gm PRN Q6HRS PRN PO CONSTIPATION; Start 12/17/17 at 09:30; Stop 12/21/17 at 13:19; Status DC Fluticasone Propionate (Flonase) 1 spray BID NS Last administered on 12/21/17at 11:01; Start 12/17/17 at 10:00 Lidocaine (Lidoderm) 1 patch DAILY TD Last administered on 12/21/17at 10:20; Start 12/17/17 at 10:00 Non-Formulary Medication (Melatonin/ Pyridoxine Hcl (B6) (Melatonin 5 Mg Tablet) ) 1 tab QHS PRN PO INSOMNIA; Start 12/17/17 at 09:30; Status UNV Midodrine (Proamatine) 5 mg [id number] PO Last administered on 12/21/17at 13:16; Start 12/17/17 at 13:00 Mirtazapine (Remeron) 7.5 mg QHS PO Last administered on 12/17/17at 20:16; Start 12/17/17 at 21:00 Ondansetron HCl (Zofran Odt) 4 mg PRN Q6HRS PRN PO NAUSEA/VOMITING; Start 12/17 at 09:45 Pantoprazole Sodium (Protonix) 40 mg DAILYAC PO Last administered on 12/21/17at 10:07; Start 12/17/17 at 11:30 Sennosides (Senna) 17.2 mg QHS PO ; Start 12/17/17 at 21:00 Sucralfate (Carafate) 1 gm QIDACHS PO Last administered on 12/21/17at 13:15; Start 12/17/17 at 11:30 Pyridoxine HCl (Vitamin B-6) 50 mg QHS PO Last administered on 12/17/17 20:19 ; Start 12/17/17 at 21:00 Amino Acids/ Glycerin/ Electrolytes 1,000 ml @ 80 mls/hr [id number] IV Last administered on 12/20/17at 13:30; Start 12/17/17 at 15:00 Megestrol Acetate (Megace) 20 mg DAILY PO Last administered on 12/21/17at 10:07 ; Start 12/17/17 at 14:00 Enoxaparin Sodium (Lovenox 40mg Syringe) 40 mg Q24H SQ Last administered on at 22:28; Start 12/17/17 at 21:00 Gadobutrol (Gadavist) 7.5 mmol 1X ONCE IV ; Start 12/18/17 at 13:30; Stop 12/18 at 13:31; Status DC Lorazepam (Ativan) 1 mg PRN Q8HRS PRN IV ANXIETY / AGITATION; Start 12/19/17 at 14:00; Status Cancel Lorazepam (Ativan Intensol) 1 mg PRN Q8HRS PRN SL ANXIETY / AGITATION Last administered on 12/19/17at 14:09; Start 12/19/17 at 14:00; Stop 12/19/17 at 16:53 ; Status DC Haloperidol Lactate (Haldol Inj) 2 mg 1X ONCE IVP Last administered on at 17:13; Start 12/19/17 at 17:00; Stop 12/19/17 at 17:01; Status DC Lorazepam (Ativan Intensol) 2 mg PRN Q2HR PRN SL ANXIETY / AGITATION Last administered on 12/19/17at 18:39; Start 12/19/17 at 17:00 Polyethylene Glycol (miraLAX PACKET) 17 gm PRN Q6HRS PRN PO CONSTIPATION; Start 12/21/17 at 13:30 Active Scripts Active Lorazepam Intensol (Lorazepam) 2 Mg/1 Ml Oral.conc 2 Mg SL PRN Q2HR PRN [place] 5-325 Tablet (Acetaminophen/Hydrocodone Bitart) 1 Each Tablet 1 Tab PO PRN Q6HRS PRN Reported Cyclobenzaprine Hcl 10 Mg Tablet 1 Tab PO Q8HRS PRN Melatonin 5 Mg Tablet (Melatonin/Pyridoxine Hcl (B6)) 1 Each Tablet 1 Tab PO QHS PRN Zofran (Ondansetron Hcl) 4 Mg Tablet 1 Tab PO Q6HRS PRN Lorazepam 0.5 Mg Tablet 1 Tab PO Q6HRS PRN Polyethylene Glycol 3350 255 Gm Powder 17 Gm PO Q6HRS PRN Senna (Sennosides) 8.6 Mg Tablet 17.6 Mg PO QHS Sucralfate 1 Gm Tablet 1 Tab PO QID Mirtazapine 15 Mg Tablet 0.5 Tab PO QHS Flonase Allergy Relief (Fluticasone Propionate) 9.9 Ml [place].susp 2 Sprays NS BID Voltaren (Diclofenac Sodium) 100 Gm Gel..gram. 1 Gm TP QID Protonix (Pantoprazole Sodium) 20 Mg Tablet.dr 2 Tab PO DAILY Folic Acid 1 Mg Tablet 1 Tab PO DAILY Gabapentin 100 Mg Capsule 200 Mg PO TID Lidocaine 1 Each Adh..patch 1 Each TP DAILY 5% patch apply to upper back Docusate Sodium 100 Mg Capsule 1 Cap PO BID Midodrine Hcl 5 Mg Tablet 5 Mg PO TID hold for bp >160 systolic Vitals/I & O Vital Sign - Last 24 Hours 12/20/17 12/20/17 12/20/17 12/20/17 15:00 19:56 20:08 23:26 Temp 98.0 98.0 98.1 98.0 98.0 98.1 Pulse 84 87 89 Resp 16 16 16 B/P (MAP) 102/60 (74) 112/72 (85) 122/71 (88) Pulse Ox 99 99 98 O2 Delivery Room Air Room Air Room Air Room Air 12/21/17 12/21/17 12/21/17 12/21/17 03:13 07:00 08:00 10:07 Temp 98.1 98.1 98.1 98.1 Pulse 85 85 85 Resp 16 16 B/P (MAP) 118/70 (86) 109/71 (84) 109/71 Pulse Ox 98 98 O2 Delivery Room Air Room Air Room Air 12/21/17 12/21/17 12/21/17 12/21/17 10:19 11:00 11:19 13:16 Temp 97.4 97.4 Pulse 85 85 Resp 17 16 17 B/P (MAP) 99/71 (80) 99/71 Pulse Ox 99 O2 Delivery Room Air Room Air Room Air Intake and Output 12/20/17 12/20/17 12/21/17 15:00 23:00 07:00 Intake Total 175 ml Balance 175 ml Nutrition Consultation Dietary Evaluation: Recommendations by RD: Increase Calorie Intake, Protein supplementation, PPN/ TPN Comments: continue ensure enlive bid continue ensure pudding bid ppn @ 80 ml/ hr - continue Expected Outcomes/Goals: to meet > 75% est nutr needs via po intake Malnutrition Findings: Food and Nutrition Intake (Mod: <75% est energy req 7days Weight Status: Overweight MAURY MCMULLEN MD Dec 21, 2017 13:55
[2017-12-21 15:00] VITALS: BP 96/71
[2017-12-21 19:41] VITALS: BP 109/73
[2017-12-21] MEDS: ENOXAPARIN 40 MG/0.4 ML SYRINGE. SQ SCH (20:18)
[2017-12-21] MEDS: MIRTAZAPINE 7.5 MG TABLET. PO SCH (20:18)
[2017-12-21] MEDS: PYRIDOXINE 50 MG TABLET. PO SCH (20:18)
[2017-12-21] MEDS: SENNOSIDES 8.6 MG TABLET PO SCH (20:18)
[2017-12-21 23:20] VITALS: BP 109/72
[2017-12-22 03:01] VITALS: BP 102/73
[2017-12-22] MEDS: AMINO AC 3%/ELECTROLYTE/GLYCER 1,000 ML IV SCH ×2 (06:29→20:37)
[2017-12-22 07:00] VITALS: BP 101/62
--- NOTE | 2017-12-22 08:30 | PDOC ---
PROGRESS NOTES Subjective Subjective HPI -f/u of Stage 4 nonsmall-cell lung cancer, adenocarcinoma with large right supraclavicular mass, mediastinal lymphadenopathy, left pleural effusion, left pleural carcinomatosis with necrotic abdominal mass and lymphadenopathy. Ros - no CP Objective Objective Vital Signs Date Time Temp Pulse Resp B/P (MAP) Pulse Ox O2 Delivery O2 Flow Rate FiO2 12/22/17 03:01 97.6 76 18 102/73 (83) 96 Room Air 97.6 Intake and Output 12/22/17 07:00 Intake Total 50 ml Output Total 901 ml Balance -851 ml Intake Oral 50 ml Output Urine Total 900 ml Stool Total 1 ml # Voids 3 # Bowel Movements 1 Physical Exam Heart: Normal S1, Normal S2 General: Alert, No acute distress Assessment Assessment Problems Medical Problems: (1) Altered mental status Status: Acute (2) Generalized weakness Status: Acute (3) History of cancer Status: Acute IMPRESSION AND PLAN: 1. Stage 4 nonsmall-cell lung cancer, adenocarcinoma with large right supraclavicular mass, mediastinal lymphadenopathy, left pleural effusion, left pleural carcinomatosis with necrotic abdominal mass and lymphadenopathy. PD-L1 testing was positive at 95%. He was given chemotherapy with carboplatin and Alimta at [facility] on 11/22/2017 with plans to add Keytruda with the second cycle of chemotherapy. However, his functional status and cognitive status continue to decline. He has not been eating well and hence he was brought to [facility]. I discussed in detail with the patient and his nephew. The patient's ECOG performance status is 3-4. In view of declining functional status, I have recommended to stop chemotherapy and to proceed with hospice. The patient's nephew, Adam will discuss with the rest of the family. I also discussed with Pat from [facility]. I also notified the patient's primary oncologist, Dr. Doris Rendon who agrees with hospice recommendations. I d/w Pat, family has not made decision regarding hospice yet. I agree with Dr Espinal and hospice recommendations. I d/w RN 2. Altered mental status. The patient has cognitive decline for the last 6 months. MRI is negative for metastasis. 3. Anemia, mild. Hemoglobin 12.4. Monitor. Comment Review of Relevant I have reviewed the following items violet (where applicable) has been applied. Medications Current Medications Sodium Chloride 1,000 ml @ 1,000 mls/hr 1X ONCE IV Last administered on at 21:53; Start 12/16/17 at 21:15; Stop 12/16/17 at 22:51; Status DC Sodium Chloride (NORMAL SALINE FLUSH for STERILE FIELD) 10 ml STK-MED ONCE .ROUTE ; Start 12/16/17 at 21:31; Stop 12/16/17 at 21:32; Status DC Lorazepam (Ativan) 1 mg 1X ONCE IV Last administered on 12/16/17at 22:46; Start 12/16/17 at 22:30; Stop 12/16/17 at 22:51; Status DC Ondansetron HCl (Zofran) 4 mg PRN Q8HRS PRN IV NAUSEA/VOMITING 1st choice; Start 12/17/17 at 00:15; Stop 12/17/17 at 09:19; Status DC Ondansetron HCl (Zofran) 4 mg PRN Q6HRS PRN IV NAUSEA/VOMITING 1st choice; Start 12/17/17 at 09:30 Acetaminophen (Tylenol) 650 mg PRN Q6HRS PRN PO MILD PAIN; Start 12/17/17 at 09 :30 Acetaminophen/ Codeine Phosphate (Tylenol #3) 1 tab PRN Q6HRS PRN PO MODERATE PAIN; Start 12/17/17 at 09:30; Stop 12/17/17 at 14:14; Status DC Ibuprofen (Motrin) 600 mg PRN Q6HRS PRN PO INFLAMMATION; Start 12/17/17 at 09: 30 Cyclobenzaprine HCl (Flexeril) 10 mg Q8HRS PRN PO MUSCLE SPASMS; Start at 09:30 Diclofenac Sodium (Voltaren) 1 dee QID TP Last administered on 12/21/17at 13:16 ; Start 12/17/17 at 13:00 Docusate Sodium (Colace) 100 mg BID PO Last administered on 12/21/17at 20:18; Start 12/17/17 at 10:00 Folic Acid (Folic Acid) 1 mg DAILY PO Last administered on 12/21/17at 10:07; Start 12/17/17 at 10:00 Gabapentin (Neurontin) 200 mg TID PO Last administered on 12/21/17at 20:18; Start 12/17/17 at 10:00 Acetaminophen/ Hydrocodone Bitart (Lortab 5/325) 1 tab PRN Q6HRS PRN PO MODERATE-SEVERE PAIN Last administered on 12/21/17 10:19; Start 12/17/17 at 09: 30 Lorazepam (Ativan) 0.5 mg PRN Q6HRS PRN PO ANXIETY; Start 12/17/17 at 09:30; Stop 12/17/17 at 14:14; Status DC Polyethylene Glycol (miraLAX Powder BULK BOTTLE) 17 gm PRN Q6HRS PRN PO CONSTIPATION; Start 12/17/17 at 09:30; Stop 12/21/17 at 13:19; Status DC Fluticasone Propionate (Flonase) 1 spray BID NS Last administered on 12/21/17 21:00; Start 12/17/17 at 10:00 Lidocaine (Lidoderm) 1 patch DAILY TD Last administered on 12/21/17 10:20; Start 12/17/17 at 10:00 Non-Formulary Medication (Melatonin/ Pyridoxine Hcl (B6) (Melatonin 5 Mg Tablet) ) 1 tab QHS PRN PO INSOMNIA; Start 12/17/17 at 09:30; Status UNV Midodrine (Proamatine) 5 mg [id number] PO Last administered on 12/21/17at 18:00; Start 12/17/17 at 13:00 Mirtazapine (Remeron) 7.5 mg QHS PO Last administered on 12/21/17 20:18; Start 12/17/17 at 21:00 Ondansetron HCl (Zofran Odt) 4 mg PRN Q6HRS PRN PO NAUSEA/VOMITING; Start 12/17 at 09:45 Pantoprazole Sodium (Protonix) 40 mg DAILYAC PO Last administered on 12/21/17at 10:07; Start 12/17/17 at 11:30 Sennosides (Senna) 17.2 mg QHS PO Last administered on 12/21/17 20:18; Start 12/17/17 at 21:00 Sucralfate (Carafate) 1 gm QIDACHS PO Last administered on 12/21/17 20:18; Start 12/17/17 at 11:30 Pyridoxine HCl (Vitamin B-6) 50 mg QHS PO Last administered on 12/21/17at 20:18 ; Start 12/17/17 at 21:00 Amino Acids/ Glycerin/ Electrolytes 1,000 ml @ 80 mls/hr [id number] IV Last administered on 12/22/17at 06:29; Start 12/17/17 at 15:00 Megestrol Acetate (Megace) 20 mg DAILY PO Last administered on 12/21/17at 10:07 ; Start 12/17/17 at 14:00 Enoxaparin Sodium (Lovenox 40mg Syringe) 40 mg Q24H SQ Last administered on at 20:18; Start 12/17/17 at 21:00 Gadobutrol (Gadavist) 7.5 mmol 1X ONCE IV ; Start 12/18/17 at 13:30; Stop 12/18 at 13:31; Status DC Lorazepam (Ativan) 1 mg PRN Q8HRS PRN IV ANXIETY / AGITATION; Start 12/19/17 at 14:00; Status Cancel Lorazepam (Ativan Intensol) 1 mg PRN Q8HRS PRN SL ANXIETY / AGITATION Last administered on 12/19/17at 14:09; Start 12/19/17 at 14:00; Stop 12/19/17 at 16:53 ; Status DC Haloperidol Lactate (Haldol Inj) 2 mg 1X ONCE IVP Last administered on at 17:13; Start 12/19/17 at 17:00; Stop 12/19/17 at 17:01; Status DC Lorazepam (Ativan Intensol) 2 mg PRN Q2HR PRN SL ANXIETY / AGITATION Last administered on 12/19/17at 18:39; Start 12/19/17 at 17:00 Polyethylene Glycol (miraLAX PACKET) 17 gm PRN Q6HRS PRN PO CONSTIPATION; Start 12/21/17 at 13:30 Active Scripts Active Lorazepam Intensol (Lorazepam) 2 Mg/1 Ml Oral.conc 2 Mg SL PRN Q2HR PRN [place] 5-325 Tablet (Acetaminophen/Hydrocodone Bitart) 1 Each Tablet 1 Tab PO PRN Q6HRS PRN Reported Cyclobenzaprine Hcl 10 Mg Tablet 1 Tab PO Q8HRS PRN Melatonin 5 Mg Tablet (Melatonin/Pyridoxine Hcl (B6)) 1 Each Tablet 1 Tab PO QHS PRN Zofran (Ondansetron Hcl) 4 Mg Tablet 1 Tab PO Q6HRS PRN Lorazepam 0.5 Mg Tablet 1 Tab PO Q6HRS PRN Polyethylene Glycol 3350 255 Gm Powder 17 Gm PO Q6HRS PRN Senna (Sennosides) 8.6 Mg Tablet 17.6 Mg PO QHS Sucralfate 1 Gm Tablet 1 Tab PO QID Mirtazapine 15 Mg Tablet 0.5 Tab PO QHS Flonase Allergy Relief (Fluticasone Propionate) 9.9 Ml [place].susp 2 Sprays NS BID Voltaren (Diclofenac Sodium) 100 Gm Gel..gram. 1 Gm TP QID Protonix (Pantoprazole Sodium) 20 Mg Tablet.dr 2 Tab PO DAILY Folic Acid 1 Mg Tablet 1 Tab PO DAILY Gabapentin 100 Mg Capsule 200 Mg PO TID Lidocaine 1 Each Adh..patch 1 Each TP DAILY 5% patch apply to upper back Docusate Sodium 100 Mg Capsule 1 Cap PO BID Midodrine Hcl 5 Mg Tablet 5 Mg PO TID hold for bp >160 systolic Vitals/I & O Vital Sign - Last 24 Hours 12/21/17 12/21/17 12/21/17 12/21/17 10:07 10:19 11:00 11:19 Temp 97.4 97.4 Pulse 85 85 Resp 17 16 17 B/P (MAP) 109/71 99/71 (80) Pulse Ox 99 O2 Delivery Room Air Room Air Room Air 12/21/17 12/21/17 12/21/17 12/21/17 13:16 15:00 18:00 19:41 Temp 97.4 98.5 97.4 98.5 Pulse 85 84 84 80 Resp 18 16 B/P (MAP) 99/71 96/71 (79) 96/71 109/73 (85) Pulse Ox 99 100 O2 Delivery Room Air Room Air 12/21/17 12/21/17 12/22/17 20:00 23:20 03:01 Temp 97.7 97.6 97.7 97.6 Pulse 73 76 Resp 18 18 B/P (MAP) 109/72 (84) 102/73 (83) Pulse Ox 98 96 O2 Delivery Room Air Room Air Room Air Intake and Output 12/21/17 12/21/17 12/22/17 15:00 23:00 07:00 Intake Total 50 ml Output Total 901 ml Balance 50 ml -901 ml Nutrition Consultation Dietary Evaluation: Recommendations by RD: Increase Calorie Intake, Protein supplementation, PPN/ TPN Comments: continue ensure enlive bid continue ensure pudding bid ppn @ 80 ml/ hr - continue Expected Outcomes/Goals: to meet > 75% est nutr needs via po intake Malnutrition Findings: Food and Nutrition Intake (Mod: <75% est energy req 7days Weight Status: Overweight VERITO HEARD MD Dec 22, 2017 08:30
[2017-12-22] MEDS: DICLOFENAC SODIUM 1% TOPICAL GEL 100GM TUBE. TP SCH ×4 (09:00→21:00)
[2017-12-22] MEDS: MIDODRINE 5 MG TABLET PO SCH ×3 (09:11→17:25)
[2017-12-22] MEDS: MEGESTROL 20 MG TABLET. PO SCH (09:11)
[2017-12-22] MEDS: FOLIC ACID 1 MG TABLET. PO SCH (09:11)
--- NOTE | 2017-12-22 09:11 | PDOC ---
PROGRESS NOTES Chief Complaint Chief Complaint acute metabolic encephalopathy, NOS Metastatic lung cancer, Stage 4 nonsmall-cell lung cancer, adenocarcinoma left pleural carcinomatosis with necrotic abdominal mass and lymphadenopathy. 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 Palliative care following Vitals Vitals Vital Signs Date Time Temp Pulse Resp B/P (MAP) Pulse Ox O2 Delivery O2 Flow Rate FiO2 12/22/17 07:00 98.1 86 14 101/62 (75) 92 Room Air 98.1 Physical Exam General: Alert, No acute distress Heart: Normal S1, Normal S2 Lungs: Other Abdomen: Normal bowel sounds, Soft, No tenderness, No hepatosplenomegaly, No masses Extremities: No clubbing, No cyanosis, No edema, Normal pulses, No tenderness/ swelling Skin: No rashes, No breakdown, No significant lesion Assessment and Plan Assessmemt and Plan Problems Medical Problems: (1) Altered mental status Status: Acute (2) Generalized weakness Status: Acute (3) History of cancer Status: Acute Comment Review of Relevant I have reviewed the following items violet (where applicable) has been applied. Medications Current Medications Sodium Chloride 1,000 ml @ 1,000 mls/hr 1X ONCE IV Last administered on at 21:53; Start 12/16/17 at 21:15; Stop 12/16/17 at 22:51; Status DC Sodium Chloride (NORMAL SALINE FLUSH for STERILE FIELD) 10 ml STK-MED ONCE .ROUTE ; Start 12/16/17 at 21:31; Stop 12/16/17 at 21:32; Status DC Lorazepam (Ativan) 1 mg 1X ONCE IV Last administered on 12/16/17at 22:46; Start 12/16/17 at 22:30; Stop 12/16/17 at 22:51; Status DC Ondansetron HCl (Zofran) 4 mg PRN Q8HRS PRN IV NAUSEA/VOMITING 1st choice; Start 12/17/17 at 00:15; Stop 12/17/17 at 09:19; Status DC Ondansetron HCl (Zofran) 4 mg PRN Q6HRS PRN IV NAUSEA/VOMITING 1st choice; Start 12/17/17 at 09:30 Acetaminophen (Tylenol) 650 mg PRN Q6HRS PRN PO MILD PAIN; Start 12/17/17 at 09 :30 Acetaminophen/ Codeine Phosphate (Tylenol #3) 1 tab PRN Q6HRS PRN PO MODERATE PAIN; Start 12/17/17 at 09:30; Stop 12/17/17 at 14:14; Status DC Ibuprofen (Motrin) 600 mg PRN Q6HRS PRN PO INFLAMMATION; Start 12/17/17 at 09: 30 Cyclobenzaprine HCl (Flexeril) 10 mg Q8HRS PRN PO MUSCLE SPASMS; Start at 09:30 Diclofenac Sodium (Voltaren) 1 dee QID TP Last administered on 12/21/17at 13:16 ; Start 12/17/17 at 13:00 Docusate Sodium (Colace) 100 mg BID PO Last administered on 12/21/17at 20:18; Start 12/17/17 at 10:00 Folic Acid (Folic Acid) 1 mg DAILY PO Last administered on 12/21/17at 10:07; Start 12/17/17 at 10:00 Gabapentin (Neurontin) 200 mg TID PO Last administered on 12/21/17at 20:18; Start 12/17/17 at 10:00 Acetaminophen/ Hydrocodone Bitart (Lortab 5/325) 1 tab PRN Q6HRS PRN PO MODERATE-SEVERE PAIN Last administered on 12/21/17at 10:19; Start 12/17/17 at 09: 30 Lorazepam (Ativan) 0.5 mg PRN Q6HRS PRN PO ANXIETY; Start 12/17/17 at 09:30; Stop 12/17/17 at 14:14; Status DC Polyethylene Glycol (miraLAX Powder BULK BOTTLE) 17 gm PRN Q6HRS PRN PO CONSTIPATION; Start 12/17/17 at 09:30; Stop 12/21/17 at 13:19; Status DC Fluticasone Propionate (Flonase) 1 spray BID NS Last administered on 12/21/17at 21:00; Start 12/17/17 at 10:00 Lidocaine (Lidoderm) 1 patch DAILY TD Last administered on 12/21/17at 10:20; Start 12/17/17 at 10:00 Non-Formulary Medication (Melatonin/ Pyridoxine Hcl (B6) (Melatonin 5 Mg Tablet) ) 1 tab QHS PRN PO INSOMNIA; Start 12/17/17 at 09:30; Status UNV Midodrine (Proamatine) 5 mg [id number] PO Last administered on 12/21/17at 18:00; Start 12/17/17 at 13:00 Mirtazapine (Remeron) 7.5 mg QHS PO Last administered on 12/21/17at 20:18; Start 12/17/17 at 21:00 Ondansetron HCl (Zofran Odt) 4 mg PRN Q6HRS PRN PO NAUSEA/VOMITING; Start 12/17 at 09:45 Pantoprazole Sodium (Protonix) 40 mg DAILYAC PO Last administered on 12/21/17at 10:07; Start 12/17/17 at 11:30 Sennosides (Senna) 17.2 mg QHS PO Last administered on 12/21/17 20:18; Start 12/17/17 at 21:00 Sucralfate (Carafate) 1 gm QIDACHS PO Last administered on 12/21/17 20:18; Start 12/17/17 at 11:30 Pyridoxine HCl (Vitamin B-6) 50 mg QHS PO Last administered on 12/21/17 20:18 ; Start 12/17/17 at 21:00 Amino Acids/ Glycerin/ Electrolytes 1,000 ml @ 80 mls/hr [id number] IV Last administered on 12/22/17at 06:29; Start 12/17/17 at 15:00 Megestrol Acetate (Megace) 20 mg DAILY PO Last administered on 12/21/17at 10:07 ; Start 12/17/17 at 14:00 Enoxaparin Sodium (Lovenox 40mg Syringe) 40 mg Q24H SQ Last administered on at 20:18; Start 12/17/17 at 21:00 Gadobutrol (Gadavist) 7.5 mmol 1X ONCE IV ; Start 12/18/17 at 13:30; Stop 12/18 at 13:31; Status DC Lorazepam (Ativan) 1 mg PRN Q8HRS PRN IV ANXIETY / AGITATION; Start 12/19/17 at 14:00; Status Cancel Lorazepam (Ativan Intensol) 1 mg PRN Q8HRS PRN SL ANXIETY / AGITATION Last administered on 12/19/17at 14:09; Start 12/19/17 at 14:00; Stop 12/19/17 at 16:53 ; Status DC Haloperidol Lactate (Haldol Inj) 2 mg 1X ONCE IVP Last administered on at 17:13; Start 12/19/17 at 17:00; Stop 12/19/17 at 17:01; Status DC Lorazepam (Ativan Intensol) 2 mg PRN Q2HR PRN SL ANXIETY / AGITATION Last administered on 12/19/17at 18:39; Start 12/19/17 at 17:00 Polyethylene Glycol (miraLAX PACKET) 17 gm PRN Q6HRS PRN PO CONSTIPATION; Start 12/21/17 at 13:30 Active Scripts Active Lorazepam Intensol (Lorazepam) 2 Mg/1 Ml Oral.conc 2 Mg SL PRN Q2HR PRN [place] 5-325 Tablet (Acetaminophen/Hydrocodone Bitart) 1 Each Tablet 1 Tab PO PRN Q6HRS PRN Reported Cyclobenzaprine Hcl 10 Mg Tablet 1 Tab PO Q8HRS PRN Melatonin 5 Mg Tablet (Melatonin/Pyridoxine Hcl (B6)) 1 Each Tablet 1 Tab PO QHS PRN Zofran (Ondansetron Hcl) 4 Mg Tablet 1 Tab PO Q6HRS PRN Lorazepam 0.5 Mg Tablet 1 Tab PO Q6HRS PRN Polyethylene Glycol 3350 255 Gm Powder 17 Gm PO Q6HRS PRN Senna (Sennosides) 8.6 Mg Tablet 17.6 Mg PO QHS Sucralfate 1 Gm Tablet 1 Tab PO QID Mirtazapine 15 Mg Tablet 0.5 Tab PO QHS Flonase Allergy Relief (Fluticasone Propionate) 9.9 Ml [place].susp 2 Sprays NS BID Voltaren (Diclofenac Sodium) 100 Gm Gel..gram. 1 Gm TP QID Protonix (Pantoprazole Sodium) 20 Mg Tablet.dr 2 Tab PO DAILY Folic Acid 1 Mg Tablet 1 Tab PO DAILY Gabapentin 100 Mg Capsule 200 Mg PO TID Lidocaine 1 Each Adh..patch 1 Each TP DAILY 5% patch apply to upper back Docusate Sodium 100 Mg Capsule 1 Cap PO BID Midodrine Hcl 5 Mg Tablet 5 Mg PO TID hold for bp >160 systolic Vitals/I & O Vital Sign - Last 24 Hours 12/21/17 12/21/17 12/21/17 12/21/17 10:07 10:19 11:00 11:19 Temp 97.4 97.4 Pulse 85 85 Resp 17 16 17 B/P (MAP) 109/71 99/71 (80) Pulse Ox 99 O2 Delivery Room Air Room Air Room Air 12/21/17 12/21/17 12/21/17 12/21/17 13:16 15:00 18:00 19:41 Temp 97.4 98.5 97.4 98.5 Pulse 85 84 84 80 Resp 18 16 B/P (MAP) 99/71 96/71 (79) 96/71 109/73 (85) Pulse Ox 99 100 O2 Delivery Room Air Room Air 12/21/17 12/21/17 12/22/17 12/22/17 20:00 23:20 03:01 07:00 Temp 97.7 97.6 98.1 97.7 97.6 98.1 Pulse 73 76 86 Resp 18 18 14 B/P (MAP) 109/72 (84) 102/73 (83) 101/62 (75) Pulse Ox 98 96 92 O2 Delivery Room Air Room Air Room Air Room Air Intake and Output 12/21/17 12/21/17 12/22/17 15:00 23:00 07:00 Intake Total 50 ml Output Total 901 ml Balance 50 ml -901 ml Nutrition Consultation Dietary Evaluation: Recommendations by RD: Increase Calorie Intake, Protein supplementation, PPN/ TPN Comments: continue ensure enlive bid continue ensure pudding bid ppn @ 80 ml/ hr - continue Expected Outcomes/Goals: to meet > 75% est nutr needs via po intake Malnutrition Findings: Food and Nutrition Intake (Mod: <75% est energy req 7days Weight Status: Overweight MAURY MCMULLEN MD Dec 22, 2017 09:11
[2017-12-22] MEDS: PANTOPRAZOLE 40 MG TABLET.DR. PO SCH (09:12)
[2017-12-22] MEDS: FLUTICASONE 50MCG/NASAL SPRAY 16GM BOTTLE. NS SCH ×2 (09:12→21:00)
[2017-12-22] MEDS: SUCRALFATE 1 GM TABLET. PO SCH ×4 (09:12→20:37)
[2017-12-22] MEDS: GABAPENTIN 100 MG CAPSULE. PO SCH ×3 (09:12→20:37)
[2017-12-22] MEDS: DOCUSATE SODIUM 100 MG CAPSULE. PO SCH ×2 (09:12→20:37)
[2017-12-22 11:00] VITALS: BP 107/70
[2017-12-22 15:00] VITALS: BP 110/72
[2017-12-22] MEDS: HYDROcodone/APAP 5/325MG 1 TAB TABLET PO PRN (17:26)
[2017-12-22 19:30] VITALS: BP 108/81
[2017-12-22] MEDS: MIRTAZAPINE 7.5 MG TABLET. PO SCH (20:37)
[2017-12-22] MEDS: PYRIDOXINE 50 MG TABLET. PO SCH (20:37)
[2017-12-22] MEDS: SENNOSIDES 8.6 MG TABLET PO SCH (20:37)
[2017-12-22] MEDS: ENOXAPARIN 40 MG/0.4 ML SYRINGE. SQ SCH (21:00)
[2017-12-22 23:45] VITALS: BP 121/76
[2017-12-23 03:52] VITALS: BP 111/81
[2017-12-23 07:00] VITALS: BP 104/70
[2017-12-23] MEDS: AMINO AC 3%/ELECTROLYTE/GLYCER 1,000 ML IV SCH ×2 (08:55→20:51)
--- NOTE | 2017-12-23 09:05 | PDOC ---
PROGRESS NOTES Subjective Subjective HPI -f/u of Stage 4 nonsmall-cell lung cancer, adenocarcinoma with large right supraclavicular mass, mediastinal lymphadenopathy, left pleural effusion, left pleural carcinomatosis with necrotic abdominal mass and lymphadenopathy. ROS - no CP, no dyspnea Objective Objective Vital Signs Date Time Temp Pulse Resp B/P (MAP) Pulse Ox O2 Delivery O2 Flow Rate FiO2 12/23/17 07:00 97.5 82 18 104/70 (81) 95 Room Air 97.5 Intake and Output 12/23/17 07:00 Intake Total 480 ml Output Total 200 ml Balance 280 ml Intake Oral 480 ml Output Urine Total 200 ml # Voids 4 # Bowel Movements 1 Physical Exam Heart: Normal S1, Normal S2 General: Alert, No acute distress Lungs: Clear to auscultation Assessment Assessment Problems Medical Problems: (1) Altered mental status Status: Acute (2) Generalized weakness Status: Acute (3) History of cancer Status: Acute IMPRESSION AND PLAN: 1. Stage 4 nonsmall-cell lung cancer, adenocarcinoma with large right supraclavicular mass, mediastinal lymphadenopathy, left pleural effusion, left pleural carcinomatosis with necrotic abdominal mass and lymphadenopathy. PD-L1 testing was positive at 95%. He was given chemotherapy with carboplatin and Alimta at [facility] on 11/22/2017 with plans to add Keytruda with the second cycle of chemotherapy. However, his functional status and cognitive status continue to decline. He has not been eating well and hence he was brought to [facility]. I discussed in detail with the patient and his nephew. The patient's ECOG performance status is 3-4. In view of declining functional status, I have recommended to stop chemotherapy and to proceed with hospice. The patient's nephew, Adam will discuss with the rest of the family. I also discussed with Pat from Palliative Care. I also notified the patient's primary oncologist, Dr. Doris Rendon who agrees with hospice recommendations. Agree with hospice plans. hospice has been contacted per notes. 2. Altered mental status. The patient has cognitive decline for the last 6 months. MRI is negative for metastasis. 3. Anemia, mild. Hemoglobin 12.4. Monitor. Comment Review of Relevant I have reviewed the following items violet (where applicable) has been applied. Medications Current Medications Sodium Chloride 1,000 ml @ 1,000 mls/hr 1X ONCE IV Last administered on at 21:53; Start 12/16/17 at 21:15; Stop 12/16/17 at 22:51; Status DC Sodium Chloride (NORMAL SALINE FLUSH for STERILE FIELD) 10 ml STK-MED ONCE .ROUTE ; Start 12/16/17 at 21:31; Stop 12/16/17 at 21:32; Status DC Lorazepam (Ativan) 1 mg 1X ONCE IV Last administered on 12/16/17at 22:46; Start 12/16/17 at 22:30; Stop 12/16/17 at 22:51; Status DC Ondansetron HCl (Zofran) 4 mg PRN Q8HRS PRN IV NAUSEA/VOMITING 1st choice; Start 12/17/17 at 00:15; Stop 12/17/17 at 09:19; Status DC Ondansetron HCl (Zofran) 4 mg PRN Q6HRS PRN IV NAUSEA/VOMITING 1st choice; Start 12/17/17 at 09:30 Acetaminophen (Tylenol) 650 mg PRN Q6HRS PRN PO MILD PAIN; Start 12/17/17 at 09 :30 Acetaminophen/ Codeine Phosphate (Tylenol #3) 1 tab PRN Q6HRS PRN PO MODERATE PAIN; Start 12/17/17 at 09:30; Stop 12/17/17 at 14:14; Status DC Ibuprofen (Motrin) 600 mg PRN Q6HRS PRN PO INFLAMMATION; Start 12/17/17 at 09: 30 Cyclobenzaprine HCl (Flexeril) 10 mg Q8HRS PRN PO MUSCLE SPASMS; Start at 09:30 Diclofenac Sodium (Voltaren) 1 dee QID TP Last administered on 12/21/17at 13:16 ; Start 12/17/17 at 13:00 Docusate Sodium (Colace) 100 mg BID PO Last administered on 12/22/17at 20:37; Start 12/17/17 at 10:00 Folic Acid (Folic Acid) 1 mg DAILY PO Last administered on 12/22/17at 09:11; Start 12/17/17 at 10:00 Gabapentin (Neurontin) 200 mg TID PO Last administered on 12/22/17at 20:37; Start 12/17/17 at 10:00 Acetaminophen/ Hydrocodone Bitart (Lortab 5/325) 1 tab PRN Q6HRS PRN PO MODERATE-SEVERE PAIN Last administered on 12/22/17 17:26; Start 12/17/17 at 09: 30 Lorazepam (Ativan) 0.5 mg PRN Q6HRS PRN PO ANXIETY; Start 12/17/17 at 09:30; Stop 12/17/17 at 14:14; Status DC Polyethylene Glycol (miraLAX Powder BULK BOTTLE) 17 gm PRN Q6HRS PRN PO CONSTIPATION; Start 12/17/17 at 09:30; Stop 12/21/17 at 13:19; Status DC Fluticasone Propionate (Flonase) 1 spray BID NS Last administered on 12/22/17 09:12; Start 12/17/17 at 10:00 Lidocaine (Lidoderm) 1 patch DAILY TD Last administered on 12/21/17 10:20; Start 12/17/17 at 10:00 Non-Formulary Medication (Melatonin/ Pyridoxine Hcl (B6) (Melatonin 5 Mg Tablet) ) 1 tab QHS PRN PO INSOMNIA; Start 12/17/17 at 09:30; Status UNV Midodrine (Proamatine) 5 mg [id number] PO Last administered on 12/22/17 17:25; Start 12/17/17 at 13:00 Mirtazapine (Remeron) 7.5 mg QHS PO Last administered on 12/22/17 20:37; Start 12/17/17 at 21:00 Ondansetron HCl (Zofran Odt) 4 mg PRN Q6HRS PRN PO NAUSEA/VOMITING; Start 12/17 at 09:45 Pantoprazole Sodium (Protonix) 40 mg DAILYAC PO Last administered on 12/22/17 09:12; Start 12/17/17 at 11:30 Sennosides (Senna) 17.2 mg QHS PO Last administered on 12/22/17 20:37; Start 12/17/17 at 21:00 Sucralfate (Carafate) 1 gm QIDACHS PO Last administered on 12/22/17 20:37; Start 12/17/17 at 11:30 Pyridoxine HCl (Vitamin B-6) 50 mg QHS PO Last administered on 9/23/18at 20:37 ; Start 12/17/17 at 21:00 Amino Acids/ Glycerin/ Electrolytes 1,000 ml @ 80 mls/hr [id number] IV Last administered on 12/22/17 20:37; Start 12/17/17 at 15:00 Megestrol Acetate (Megace) 20 mg DAILY PO Last administered on 12/22/17at 09:11 ; Start 12/17/17 at 14:00 Enoxaparin Sodium (Lovenox 40mg Syringe) 40 mg Q24H SQ Last administered on at 20:18; Start 12/17/17 at 21:00 Gadobutrol (Gadavist) 7.5 mmol 1X ONCE IV ; Start 12/18/17 at 13:30; Stop 12/18 at 13:31; Status DC Lorazepam (Ativan) 1 mg PRN Q8HRS PRN IV ANXIETY / AGITATION; Start 12/19/17 at 14:00; Status Cancel Lorazepam (Ativan Intensol) 1 mg PRN Q8HRS PRN SL ANXIETY / AGITATION Last administered on 12/19/17at 14:09; Start 12/19/17 at 14:00; Stop 12/19/17 at 16:53 ; Status DC Haloperidol Lactate (Haldol Inj) 2 mg 1X ONCE IVP Last administered on at 17:13; Start 12/19/17 at 17:00; Stop 12/19/17 at 17:01; Status DC Lorazepam (Ativan Intensol) 2 mg PRN Q2HR PRN SL ANXIETY / AGITATION Last administered on 12/19/17at 18:39; Start 12/19/17 at 17:00 Polyethylene Glycol (miraLAX PACKET) 17 gm PRN Q6HRS PRN PO CONSTIPATION; Start 12/21/17 at 13:30 Active Scripts Active Lorazepam Intensol (Lorazepam) 2 Mg/1 Ml Oral.conc 2 Mg SL PRN Q2HR PRN [place] 5-325 Tablet (Acetaminophen/Hydrocodone Bitart) 1 Each Tablet 1 Tab PO PRN Q6HRS PRN Reported Cyclobenzaprine Hcl 10 Mg Tablet 1 Tab PO Q8HRS PRN Melatonin 5 Mg Tablet (Melatonin/Pyridoxine Hcl (B6)) 1 Each Tablet 1 Tab PO QHS PRN Zofran (Ondansetron Hcl) 4 Mg Tablet 1 Tab PO Q6HRS PRN Lorazepam 0.5 Mg Tablet 1 Tab PO Q6HRS PRN Polyethylene Glycol 3350 255 Gm Powder 17 Gm PO Q6HRS PRN Senna (Sennosides) 8.6 Mg Tablet 17.6 Mg PO QHS Sucralfate 1 Gm Tablet 1 Tab PO QID Mirtazapine 15 Mg Tablet 0.5 Tab PO QHS Flonase Allergy Relief (Fluticasone Propionate) 9.9 Ml [place].susp 2 Sprays NS BID Voltaren (Diclofenac Sodium) 100 Gm Gel..gram. 1 Gm TP QID Protonix (Pantoprazole Sodium) 20 Mg Tablet.dr 2 Tab PO DAILY Folic Acid 1 Mg Tablet 1 Tab PO DAILY Gabapentin 100 Mg Capsule 200 Mg PO TID Lidocaine 1 Each Adh..patch 1 Each TP DAILY 5% patch apply to upper back Docusate Sodium 100 Mg Capsule 1 Cap PO BID Midodrine Hcl 5 Mg Tablet 5 Mg PO TID hold for bp >160 systolic Vitals/I & O Vital Sign - Last 24 Hours 12/22/17 12/22/17 12/22/17 12/22/17 09:11 11:00 12:55 15:00 Pulse 86 82 82 93 Resp 14 14 B/P (MAP) 101/62 107/70 (82) 107/70 110/72 (85) Pulse Ox 93 93 O2 Delivery Room Air Room Air 12/22/17 12/22/17 12/22/17 12/22/17 17:25 17:26 19:25 19:30 Temp 97.7 97.7 Pulse 93 87 Resp 19 20 B/P (MAP) 110/72 108/81 (90) Pulse Ox 100 O2 Delivery Room Air Room Air Room Air 12/22/17 12/22/17 12/23/17 12/23/17 20:13 23:45 03:52 07:00 Temp 98.0 98.1 97.5 98.0 98.1 97.5 Pulse 92 83 82 Resp 20 20 18 B/P (MAP) 121/76 (91) 111/81 (91) 104/70 (81) Pulse Ox 100 99 95 O2 Delivery Room Air Room Air Room Air Room Air Intake and Output 12/22/17 12/22/17 12/23/17 15:00 23:00 07:00 Intake Total 280 ml 200 ml Output Total 200 ml Balance 80 ml 200 ml Nutrition Consultation Dietary Evaluation: Recommendations by RD: Increase Calorie Intake, Protein supplementation, PPN/ TPN Comments: continue ensure enlive bid continue ensure pudding bid ppn @ 80 ml/ hr - continue Expected Outcomes/Goals: to meet > 75% est nutr needs via po intake Malnutrition Findings: Food and Nutrition Intake (Mod: <75% est energy req 7days Weight Status: Overweight VERITO HEARD MD Dec 23, 2017 09:05
[2017-12-23] MEDS: DICLOFENAC SODIUM 1% TOPICAL GEL 100GM TUBE. TP SCH ×4 (09:14→20:49)
[2017-12-23] MEDS: LIDOCAINE (700MG/PATCH) PATCH. TD SCH (09:16)
[2017-12-23] MEDS: HYDROcodone/APAP 5/325MG 1 TAB TABLET PO PRN (09:18)
[2017-12-23] MEDS: FLUTICASONE 50MCG/NASAL SPRAY 16GM BOTTLE. NS SCH ×2 (09:18→20:41)
[2017-12-23] MEDS: MEGESTROL 20 MG TABLET. PO SCH (09:26)
[2017-12-23] MEDS: MIDODRINE 5 MG TABLET PO SCH ×3 (09:26→17:45)
[2017-12-23] MEDS: FOLIC ACID 1 MG TABLET. PO SCH (09:27)
[2017-12-23] MEDS: DOCUSATE SODIUM 100 MG CAPSULE. PO SCH ×2 (09:28→20:48)
[2017-12-23] MEDS: GABAPENTIN 100 MG CAPSULE. PO SCH ×3 (09:28→20:38)
[2017-12-23] MEDS: PANTOPRAZOLE 40 MG TABLET.DR. PO SCH (09:28)
[2017-12-23] MEDS: SUCRALFATE 1 GM TABLET. PO SCH ×4 (09:28→20:48)
[2017-12-23 10:53] VITALS: BP 103/65
[2017-12-23] MEDS ORDERED: MORPHINE SULFATE 2 MG/ML VIAL. IV PRN (12:30)
[2017-12-23] MEDS ORDERED: MORPHINE SULFATE 20 MG/ML CONC SOLUTION. SL PRN (12:30)
--- NOTE | 2017-12-23 12:32 | PDOC ---
PROGRESS NOTES Chief Complaint Chief Complaint acute metabolic encephalopathy, NOS Metastatic lung cancer, Stage 4 nonsmall-cell lung cancer, adenocarcinoma left pleural carcinomatosis with necrotic abdominal mass and lymphadenopathy. 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, NOS, adjustment disorder, History of Present Illness History of Present Illness still on PPN Hospice house is reevaluating if patient will qualify for hospice house DVT ppx Supportive meds dw CHATA ZAVALETA, RN, social work-we are waiting for hospice house to revisit Hospice house requests more pain medicines and I have done that Rx on chart Okay to DC to hospice house today or tomorrow when they have accepted Vitals Vitals Vital Signs Date Time Temp Pulse Resp B/P (MAP) Pulse Ox O2 Delivery O2 Flow Rate FiO2 12/23/17 10:53 98.0 88 16 103/65 (78) 99 Nasal Cannula 2.0 98.0 Physical Exam General: Alert, No acute distress Heart: Normal S1, Normal S2 Lungs: Other Abdomen: Normal bowel sounds, Soft, No tenderness, No hepatosplenomegaly, No masses Extremities: No clubbing, No cyanosis, No edema, Normal pulses, No tenderness/ swelling Skin: No rashes, No breakdown, No significant lesion Review of Systems Review of Systems Pain everywhere Assessment and Plan Assessmemt and Plan Problems Medical Problems: (1) Altered mental status Status: Acute (2) Generalized weakness Status: Acute (3) History of cancer Status: Acute Comment Review of Relevant I have reviewed the following items violet (where applicable) has been applied. Medications Current Medications Sodium Chloride 1,000 ml @ 1,000 mls/hr 1X ONCE IV Last administered on at 21:53; Start 12/16/17 at 21:15; Stop 12/16/17 at 22:51; Status DC Sodium Chloride (NORMAL SALINE FLUSH for STERILE FIELD) 10 ml STK-MED ONCE .ROUTE ; Start 12/16/17 at 21:31; Stop 12/16/17 at 21:32; Status DC Lorazepam (Ativan) 1 mg 1X ONCE IV Last administered on 12/16/17at 22:46; Start 12/16/17 at 22:30; Stop 12/16/17 at 22:51; Status DC Ondansetron HCl (Zofran) 4 mg PRN Q8HRS PRN IV NAUSEA/VOMITING 1st choice; Start 12/17/17 at 00:15; Stop 12/17/17 at 09:19; Status DC Ondansetron HCl (Zofran) 4 mg PRN Q6HRS PRN IV NAUSEA/VOMITING 1st choice; Start 12/17/17 at 09:30 Acetaminophen (Tylenol) 650 mg PRN Q6HRS PRN PO MILD PAIN; Start 12/17/17 at 09 :30 Acetaminophen/ Codeine Phosphate (Tylenol #3) 1 tab PRN Q6HRS PRN PO MODERATE PAIN; Start 12/17/17 at 09:30; Stop 12/17/17 at 14:14; Status DC Ibuprofen (Motrin) 600 mg PRN Q6HRS PRN PO INFLAMMATION; Start 12/17/17 at 09: 30 Cyclobenzaprine HCl (Flexeril) 10 mg Q8HRS PRN PO MUSCLE SPASMS; Start at 09:30 Diclofenac Sodium (Voltaren) 1 dee QID TP Last administered on 12/23/17 09:14 ; Start 12/17/17 at 13:00 Docusate Sodium (Colace) 100 mg BID PO Last administered on 12/23/17 09:28; Start 12/17/17 at 10:00 Folic Acid (Folic Acid) 1 mg DAILY PO Last administered on 12/23/17 09:27; Start 12/17/17 at 10:00 Gabapentin (Neurontin) 200 mg TID PO Last administered on 12/23/17 09:28; Start 12/17/17 at 10:00 Acetaminophen/ Hydrocodone Bitart (Lortab 5/325) 1 tab PRN Q6HRS PRN PO MODERATE-SEVERE PAIN Last administered on 12/23/17at 09:18; Start 12/17/17 at 09: 30 Lorazepam (Ativan) 0.5 mg PRN Q6HRS PRN PO ANXIETY; Start 12/17/17 at 09:30; Stop 12/17/17 at 14:14; Status DC Polyethylene Glycol (miraLAX Powder BULK BOTTLE) 17 gm PRN Q6HRS PRN PO CONSTIPATION; Start 12/17/17 at 09:30; Stop 12/21/17 at 13:19; Status DC Fluticasone Propionate (Flonase) 1 spray BID NS Last administered on 12/23/17at 09:18; Start 12/17/17 at 10:00 Lidocaine (Lidoderm) 1 patch DAILY TD Last administered on 12/23/17 09:16; Start 12/17/17 at 10:00 Non-Formulary Medication (Melatonin/ Pyridoxine Hcl (B6) (Melatonin 5 Mg Tablet) ) 1 tab QHS PRN PO INSOMNIA; Start 12/17/17 at 09:30; Status UNV Midodrine (Proamatine) 5 mg [id number] PO Last administered on 12/23/17 09:26; Start 12/17/17 at 13:00 Mirtazapine (Remeron) 7.5 mg QHS PO Last administered on 12/22/17 20:37; Start 12/17/17 at 21:00 Ondansetron HCl (Zofran Odt) 4 mg PRN Q6HRS PRN PO NAUSEA/VOMITING; Start 12/17 at 09:45 Pantoprazole Sodium (Protonix) 40 mg DAILYAC PO Last administered on 12/23/17 09:28; Start 12/17/17 at 11:30 Sennosides (Senna) 17.2 mg QHS PO Last administered on 12/22/17 20:37; Start 12/17/17 at 21:00 Sucralfate (Carafate) 1 gm QIDACHS PO Last administered on 12/23/17 09:28; Start 12/17/17 at 11:30 Pyridoxine HCl (Vitamin B-6) 50 mg QHS PO Last administered on 12/22/17 20:37 ; Start 12/17/17 at 21:00 Amino Acids/ Glycerin/ Electrolytes 1,000 ml @ 80 mls/hr [id number] IV Last administered on 12/23/17 08:55; Start 12/17/17 at 15:00 Megestrol Acetate (Megace) 20 mg DAILY PO Last administered on 12/23/17 09:26 ; Start 12/17/17 at 14:00 Enoxaparin Sodium (Lovenox 40mg Syringe) 40 mg Q24H SQ Last administered on 20:18; Start 12/17/17 at 21:00 Gadobutrol (Gadavist) 7.5 mmol 1X ONCE IV ; Start 12/18/17 at 13:30; Stop 12/18 at 13:31; Status DC Lorazepam (Ativan) 1 mg PRN Q8HRS PRN IV ANXIETY / AGITATION; Start 12/19/17 at 14:00; Status Cancel Lorazepam (Ativan Intensol) 1 mg PRN Q8HRS PRN SL ANXIETY / AGITATION Last administered on 12/19/17at 14:09; Start 12/19/17 at 14:00; Stop 12/19/17 at 16:53 ; Status DC Haloperidol Lactate (Haldol Inj) 2 mg 1X ONCE IVP Last administered on at 17:13; Start 12/19/17 at 17:00; Stop 12/19/17 at 17:01; Status DC Lorazepam (Ativan Intensol) 2 mg PRN Q2HR PRN SL ANXIETY / AGITATION Last administered on 12/19/17at 18:39; Start 12/19/17 at 17:00 Polyethylene Glycol (miraLAX PACKET) 17 gm PRN Q6HRS PRN PO CONSTIPATION; Start 12/21/17 at 13:30 Active Scripts Active Lorazepam Intensol (Lorazepam) 2 Mg/1 Ml Oral.conc 2 Mg SL PRN Q2HR PRN [place] 5-325 Tablet (Acetaminophen/Hydrocodone Bitart) 1 Each Tablet 1 Tab PO PRN Q6HRS PRN Reported Cyclobenzaprine Hcl 10 Mg Tablet 1 Tab PO Q8HRS PRN Melatonin 5 Mg Tablet (Melatonin/Pyridoxine Hcl (B6)) 1 Each Tablet 1 Tab PO QHS PRN Zofran (Ondansetron Hcl) 4 Mg Tablet 1 Tab PO Q6HRS PRN Lorazepam 0.5 Mg Tablet 1 Tab PO Q6HRS PRN Polyethylene Glycol 3350 255 Gm Powder 17 Gm PO Q6HRS PRN Senna (Sennosides) 8.6 Mg Tablet 17.6 Mg PO QHS Sucralfate 1 Gm Tablet 1 Tab PO QID Mirtazapine 15 Mg Tablet 0.5 Tab PO QHS Flonase Allergy Relief (Fluticasone Propionate) 9.9 Ml [place].susp 2 Sprays NS BID Voltaren (Diclofenac Sodium) 100 Gm Gel..gram. 1 Gm TP QID Protonix (Pantoprazole Sodium) 20 Mg Tablet.dr 2 Tab PO DAILY Folic Acid 1 Mg Tablet 1 Tab PO DAILY Gabapentin 100 Mg Capsule 200 Mg PO TID Lidocaine 1 Each Adh..patch 1 Each TP DAILY 5% patch apply to upper back Docusate Sodium 100 Mg Capsule 1 Cap PO BID Midodrine Hcl 5 Mg Tablet 5 Mg PO TID hold for bp >160 systolic Vitals/I & O Vital Sign - Last 24 Hours 12/22/17 12/22/17 12/22/17 12/22/17 12:55 15:00 17:25 17:26 Pulse 82 93 93 Resp 14 19 B/P (MAP) 107/70 110/72 (85) 110/72 Pulse Ox 93 O2 Delivery Room Air Room Air 12/22/17 12/22/17 12/22/17 12/22/17 19:25 19:30 20:13 23:45 Temp 97.7 98.0 97.7 98.0 Pulse 87 92 Resp 20 20 B/P (MAP) 108/81 (90) 121/76 (91) Pulse Ox 100 100 O2 Delivery Room Air Room Air Room Air Room Air 12/23/17 12/23/17 12/23/17 12/23/17 03:52 07:00 09:18 09:26 Temp 98.1 97.5 98.1 97.5 Pulse 83 82 82 Resp 20 18 28 B/P (MAP) 111/81 (91) 104/70 (81) 104/70 Pulse Ox 99 95 O2 Delivery Room Air Room Air Nasal Cannula O2 Flow Rate 2.0 12/23/17 12/23/17 10:52 10:53 Temp 98.0 98.0 Pulse 88 Resp 16 B/P (MAP) 103/65 (78) Pulse Ox 99 O2 Delivery Nasal Cannula Nasal Cannula O2 Flow Rate 2.0 2.0 Intake and Output 12/22/17 12/22/17 12/23/17 15:00 23:00 07:00 Intake Total 280 ml 200 ml Output Total 200 ml Balance 80 ml 200 ml Nutrition Consultation Dietary Evaluation: Recommendations by RD: Increase Calorie Intake, Protein supplementation, PPN/ TPN Comments: continue ensure enlive bid continue ensure pudding bid ppn @ 80 ml/ hr - continue Expected Outcomes/Goals: to meet > 75% est nutr needs via po intake Malnutrition Findings: Food and Nutrition Intake (Mod: <75% est energy req 7days Weight Status: Overweight JAIME MALAVE MD Dec 23, 2017 12:32
[2017-12-23] MEDS: LORazepam INTENSOL 2 MG/ML ORAL.CONC SL PRN (14:40)
[2017-12-23 15:05] VITALS: BP 113/87
[2017-12-23] MEDS ORDERED: HALOPERIDOL LACTATE 5 MG/ML VIAL. IVP PRN ×2 (16:00)
--- NOTE | 2017-12-23 16:06 | PDOC2 ---
PALLIATIVE CARE Palliative Care Note Palliative Care Patient had episode of agitation, hallucinations/paranoia Morphine 1 mg IV given Ativan 1mg LS with good results. Oxygen saturations dropped to 68-70%. Patient now comfortable. Dr. Mazariegos called. Order for Haldol received. Spoke with Adam and Jhonatan. Goal is comfort care. Hospice IP facility declined acceptance today. Will re-evaluate tomorrow. Outside the Hospital DNR/DNI formed completed. Copy placed on chart. RUFUS JUAREZ Dec 23, 2017 16:06
[2017-12-23 19:00] VITALS: BP 111/71
[2017-12-23] MEDS: MIRTAZAPINE 7.5 MG TABLET. PO SCH (20:38)
[2017-12-23] MEDS: SENNOSIDES 8.6 MG TABLET PO SCH (20:48)
[2017-12-23] MEDS: ENOXAPARIN 40 MG/0.4 ML SYRINGE. SQ SCH (20:48)
[2017-12-23] MEDS: PYRIDOXINE 50 MG TABLET. PO SCH (20:49)
[2017-12-23 22:42] VITALS: BP 104/70
[2017-12-24 03:05] VITALS: BP 97/74
[2017-12-24 07:48] VITALS: BP 101/68
--- NOTE | 2017-12-24 08:48 | PDOC ---
PROGRESS NOTES Subjective Subjective HPI - f/u of Stage 4 nonsmall-cell lung cancer, adenocarcinoma with large right supraclavicular mass, mediastinal lymphadenopathy, left pleural effusion, left pleural carcinomatosis with necrotic abdominal mass and lymphadenopathy. ROS - no CP, comfortable Objective Objective Vital Signs Date Time Temp Pulse Resp B/P (MAP) Pulse Ox O2 Delivery O2 Flow Rate FiO2 12/24/17 07:48 98.9 82 18 101/68 (79) 99 Nasal Cannula 2.0 98.9 Intake and Output 12/24/17 07:00 Intake Total 80 ml Output Total 825 ml Balance -745 ml Intake Oral 0 ml Blood Product IV Normal Saline Flush 80 ml Output Urine Total 825 ml # Bowel Movements 1 Physical Exam Heart: Normal S1, Normal S2 General: Alert, No acute distress Assessment Assessment Problems Medical Problems: (1) Altered mental status Status: Acute (2) Generalized weakness Status: Acute (3) History of cancer Status: Acute IMPRESSION AND PLAN: 1. Stage 4 nonsmall-cell lung cancer, adenocarcinoma with large right supraclavicular mass, mediastinal lymphadenopathy, left pleural effusion, left pleural carcinomatosis with necrotic abdominal mass and lymphadenopathy. PD-L1 testing was positive at 95%. He was given chemotherapy with carboplatin and Alimta at [facility] on 11/22/2017 with plans to add Keytruda with the second cycle of chemotherapy. However, his functional status and cognitive status continue to decline. He has not been eating well and hence he was brought to [facility]. I discussed in detail with the patient and his nephew. The patient's ECOG performance status is 3-4. In view of declining functional status, I have recommended to stop chemotherapy and to proceed with hospice. The patient's nephew, Adam will discuss with the rest of the family. I also discussed with Pat from Palliative Care. Agree with hospice plans. hospice has been contacted. I d/w Pat from palliative care and I appreciate her efforts. I also notified the patient's primary oncologist, Dr. Dorsi Rendon. 2. Altered mental status. The patient has cognitive decline for the last 6 months. MRI is negative for metastasis. 3. Anemia, mild. Hemoglobin 12.4. Monitor. Comment Review of Relevant I have reviewed the following items violet (where applicable) has been applied. Medications Current Medications Sodium Chloride 1,000 ml @ 1,000 mls/hr 1X ONCE IV Last administered on at 21:53; Start 12/16/17 at 21:15; Stop 12/16/17 at 22:51; Status DC Sodium Chloride (NORMAL SALINE FLUSH for STERILE FIELD) 10 ml STK-MED ONCE .ROUTE ; Start 12/16/17 at 21:31; Stop 12/16/17 at 21:32; Status DC Lorazepam (Ativan) 1 mg 1X ONCE IV Last administered on 12/16/17at 22:46; Start 12/16/17 at 22:30; Stop 12/16/17 at 22:51; Status DC Ondansetron HCl (Zofran) 4 mg PRN Q8HRS PRN IV NAUSEA/VOMITING 1st choice; Start 12/17/17 at 00:15; Stop 12/17/17 at 09:19; Status DC Ondansetron HCl (Zofran) 4 mg PRN Q6HRS PRN IV NAUSEA/VOMITING 1st choice; Start 12/17/17 at 09:30 Acetaminophen (Tylenol) 650 mg PRN Q6HRS PRN PO MILD PAIN; Start 12/17/17 at 09 :30 Acetaminophen/ Codeine Phosphate (Tylenol #3) 1 tab PRN Q6HRS PRN PO MODERATE PAIN; Start 12/17/17 at 09:30; Stop 12/17/17 at 14:14; Status DC Ibuprofen (Motrin) 600 mg PRN Q6HRS PRN PO INFLAMMATION; Start 12/17/17 at 09: 30 Cyclobenzaprine HCl (Flexeril) 10 mg Q8HRS PRN PO MUSCLE SPASMS; Start at 09:30 Diclofenac Sodium (Voltaren) 1 dee QID TP Last administered on 12/23/17at 20:49 ; Start 12/17/17 at 13:00 Docusate Sodium (Colace) 100 mg BID PO Last administered on 12/23/17at 09:28; Start 12/17/17 at 10:00 Folic Acid (Folic Acid) 1 mg DAILY PO Last administered on 12/23/17at 09:27; Start 12/17/17 at 10:00 Gabapentin (Neurontin) 200 mg TID PO Last administered on 12/23/17at 20:38; Start 12/17/17 at 10:00 Acetaminophen/ Hydrocodone Bitart (Lortab 5/325) 1 tab PRN Q6HRS PRN PO MODERATE-SEVERE PAIN Last administered on 12/23/17 09:18; Start 12/17/17 at 09: 30 Lorazepam (Ativan) 0.5 mg PRN Q6HRS PRN PO ANXIETY; Start 12/17/17 at 09:30; Stop 12/17/17 at 14:14; Status DC Polyethylene Glycol (miraLAX Powder BULK BOTTLE) 17 gm PRN Q6HRS PRN PO CONSTIPATION; Start 12/17/17 at 09:30; Stop 12/21/17 at 13:19; Status DC Fluticasone Propionate (Flonase) 1 spray BID NS Last administered on 12/23/17 20:41; Start 12/17/17 at 10:00 Lidocaine (Lidoderm) 1 patch DAILY TD Last administered on 12/23/17 09:16; Start 12/17/17 at 10:00 Non-Formulary Medication (Melatonin/ Pyridoxine Hcl (B6) (Melatonin 5 Mg Tablet) ) 1 tab QHS PRN PO INSOMNIA; Start 12/17/17 at 09:30; Status UNV Midodrine (Proamatine) 5 mg [id number] PO Last administered on 12/23/17 09:26; Start 12/17/17 at 13:00 Mirtazapine (Remeron) 7.5 mg QHS PO Last administered on 12/23/17 20:38; Start 12/17/17 at 21:00 Ondansetron HCl (Zofran Odt) 4 mg PRN Q6HRS PRN PO NAUSEA/VOMITING; Start 12/17 at 09:45 Pantoprazole Sodium (Protonix) 40 mg DAILYAC PO Last administered on 12/23/17 09:28; Start 12/17/17 at 11:30 Sennosides (Senna) 17.2 mg QHS PO Last administered on 12/22/17 20:37; Start 12/17/17 at 21:00 Sucralfate (Carafate) 1 gm QIDACHS PO Last administered on 12/23/17 09:28; Start 12/17/17 at 11:30 Pyridoxine HCl (Vitamin B-6) 50 mg QHS PO Last administered on 12/22/17at 20:37 ; Start 12/17/17 at 21:00 Amino Acids/ Glycerin/ Electrolytes 1,000 ml @ 80 mls/hr [id number] IV Last administered on 12/23/17at 08:55; Start 12/17/17 at 15:00 Megestrol Acetate (Megace) 20 mg DAILY PO Last administered on 12/23/17at 09:26 ; Start 12/17/17 at 14:00 Enoxaparin Sodium (Lovenox 40mg Syringe) 40 mg Q24H SQ Last administered on at 20:48; Start 12/17/17 at 21:00 Gadobutrol (Gadavist) 7.5 mmol 1X ONCE IV ; Start 12/18/17 at 13:30; Stop 12/18 at 13:31; Status DC Lorazepam (Ativan) 1 mg PRN Q8HRS PRN IV ANXIETY / AGITATION; Start 12/19/17 at 14:00; Status Cancel Lorazepam (Ativan Intensol) 1 mg PRN Q8HRS PRN SL ANXIETY / AGITATION Last administered on 12/19/17at 14:09; Start 12/19/17 at 14:00; Stop 12/19/17 at 16:53 ; Status DC Haloperidol Lactate (Haldol Inj) 2 mg 1X ONCE IVP Last administered on at 17:13; Start 12/19/17 at 17:00; Stop 12/19/17 at 17:01; Status DC Lorazepam (Ativan Intensol) 2 mg PRN Q2HR PRN SL ANXIETY / AGITATION Last administered on 12/23/17at 14:40; Start 12/19/17 at 17:00 Polyethylene Glycol (miraLAX PACKET) 17 gm PRN Q6HRS PRN PO CONSTIPATION; Start 12/21/17 at 13:30 Morphine Sulfate (Roxanol Conc) 20 mg PRN Q3HRS PRN SL BREAKTHROUGH PAIN; Start 12/23/17 at 12:30 Morphine Sulfate (Morphine Sulfate) 1 mg PRN Q2HR PRN IV PAIN Last administered on 12/23/17at 14:40; Start 12/23/17 at 12:30 Haloperidol Lactate (Haldol Inj) 5 mg PRN Q6HRS PRN IVP AGITATION, 2ND CHOICE; Start 12/23/17 at 16:00; Stop 12/23/17 at 16:00; Status DC Lorazepam (Ativan) 2 mg PRN Q4HRS PRN IV ANXIETY / AGITATION, 1ST CHOIC; Start 12/23/17 at 16:00 Haloperidol Lactate (Haldol Inj) 1 mg PRN Q2HRS PRN IVP AGITATION; Start at 16:00 Active Scripts Active Lorazepam Intensol (Lorazepam) 2 Mg/1 Ml Oral.conc 2 Mg SL PRN Q2HR PRN [place] 5-325 Tablet (Acetaminophen/Hydrocodone Bitart) 1 Each Tablet 1 Tab PO PRN Q6HRS PRN Reported Cyclobenzaprine Hcl 10 Mg Tablet 1 Tab PO Q8HRS PRN Melatonin 5 Mg Tablet (Melatonin/Pyridoxine Hcl (B6)) 1 Each Tablet 1 Tab PO QHS PRN Zofran (Ondansetron Hcl) 4 Mg Tablet 1 Tab PO Q6HRS PRN Lorazepam 0.5 Mg Tablet 1 Tab PO Q6HRS PRN Polyethylene Glycol 3350 255 Gm Powder 17 Gm PO Q6HRS PRN Senna (Sennosides) 8.6 Mg Tablet 17.6 Mg PO QHS Sucralfate 1 Gm Tablet 1 Tab PO QID Mirtazapine 15 Mg Tablet 0.5 Tab PO QHS Flonase Allergy Relief (Fluticasone Propionate) 9.9 Ml [place].susp 2 Sprays NS BID Voltaren (Diclofenac Sodium) 100 Gm Gel..gram. 1 Gm TP QID Protonix (Pantoprazole Sodium) 20 Mg Tablet.dr 2 Tab PO DAILY Folic Acid 1 Mg Tablet 1 Tab PO DAILY Gabapentin 100 Mg Capsule 200 Mg PO TID Lidocaine 1 Each Adh..patch 1 Each TP DAILY 5% patch apply to upper back Docusate Sodium 100 Mg Capsule 1 Cap PO BID Midodrine Hcl 5 Mg Tablet 5 Mg PO TID hold for bp >160 systolic Vitals/I & O Vital Sign - Last 24 Hours 12/23/17 12/23/17 12/23/17 12/23/17 09:18 09:26 10:18 10:52 Pulse 82 Resp 28 14 B/P (MAP) 104/70 Pulse Ox 94 O2 Delivery Nasal Cannula Room Air Nasal Cannula O2 Flow Rate 2.0 2.0 12/23/17 12/23/17 12/23/17 12/23/17 10:53 14:40 15:05 19:00 Temp 98.0 97.6 98.3 98.0 97.6 98.3 Pulse 88 104 107 Resp B/P (MAP) 103/65 (78) 113/87 (96) 111/71 (84) Pulse Ox 99 97 99 O2 Delivery Nasal Cannula Nasal Cannula Nasal Cannula O2 Flow Rate 2.0 4.0 4.0 12/23/17 12/23/17 12/24/17 12/24/17 19:42 22:42 03:05 07:48 Temp 98.5 98.3 98.9 98.5 98.3 98.9 Pulse 85 82 82 Resp B/P (MAP) 104/70 (81) 97/74 (82) 101/68 (79) Pulse Ox 96 100 99 O2 Delivery Nasal Cannula Nasal Cannula Nasal Cannula Nasal Cannula O2 Flow Rate 2.0 4.0 4.0 2.0 Intake and Output 12/23/17 12/23/17 12/24/17 15:00 23:00 07:00 Intake Total 80 ml 0 ml 0 ml Output Total 150 ml 200 ml 475 ml Balance -70 ml -200 ml -475 ml Nutrition Consultation Dietary Evaluation: Recommendations by RD: Increase Calorie Intake, Protein supplementation, PPN/ TPN Comments: continue ensure enlive bid continue ensure pudding bid ppn @ 80 ml/ hr - continue Expected Outcomes/Goals: to meet > 75% est nutr needs via po intake Malnutrition Findings: Food and Nutrition Intake (Mod: <75% est energy req 7days Weight Status: Overweight VERITO HEARD MD Dec 24, 2017 08:48
[2017-12-24] MEDS: LIDOCAINE (700MG/PATCH) PATCH. TD SCH (09:00)
[2017-12-24] MEDS: DICLOFENAC SODIUM 1% TOPICAL GEL 100GM TUBE. TP SCH ×2 (09:00→13:00)
[2017-12-24] MEDS: AMINO AC 3%/ELECTROLYTE/GLYCER 1,000 ML IV SCH (09:30)
--- NOTE | 2017-12-24 10:40 | PDOC3 ---
Discharge Summary Visit Information Date of Admission: Dec 17, 2017 Date of Discharge: Dec 24, 2017 Admitting Diagnosis Comment: acute metabolic encephalopathy, NOS Metastatic lung cancer, Stage 4 nonsmall-cell lung cancer, adenocarcinoma left pleural carcinomatosis with necrotic abdominal mass and lymphadenopathy. 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 Cottrell is a 67 old white male who [facility], admitted because of failure to thrive mainly poor by mouth intake. No falls. He has stage IV non-small cell lung carcinoma with metastases to the left pleura necrotic abdominal mass and lymphadenopathy. Stayed here 7 days. Finally the course remarkable for now going to home hospice. Needing PPN but of course we are stopping that once goes to hospice house. Some encephalopathy or confusion needing Haldol. All meds on file. DNR signed outside form Patient seen and examined, discussed with family and social work, RN DC time 31 minutes greater than 50% DC coordination. Discharge Information Condition at Discharge: Stable Disposition/Orders: D/C to Home w/ Hospice Scheduled Diclofenac Sodium (Voltaren) 100 Gm Gel..gram., 1 GM TP QID for pain, #100 Ref 2 (Reported) Entered as Reported by: SALLY PEREIRA on 12/17/17246 Last Taken: Unknown Dose on 12/16/17 Last Action: Continued on 12/17/17918 by JAIME MALAVE Docusate Sodium (Docusate Sodium) 100 Mg Capsule, 1 CAP PO BID, #30 (Reported) Entered as Reported by: SALLY PEREIRA on 12/17/17246 Last Taken: Unknown Dose on 12/16/17 Last Action: Continued on 12/17/17918 by JAIME MALAVE Fluticasone Propionate (Flonase Allergy Relief) 9.9 Ml [place].susp, 2 SPRAYS NS BID, (Reported) Entered as Reported by: SALLY PEREIRA on 12/17/17246 Last Taken: Unknown Dose on 12/16/17 Last Action: Converted on 12/17/17918 by JAIME MALAVE Folic Acid (Folic Acid) 1 Mg Tablet, 1 TAB PO DAILY, #90 Ref 1 (Reported) Entered as Reported by: SALLY PEREIRA on 12/17/17246 Last Taken: Unknown Dose on 12/16/17 Last Action: Continued on 12/17/17918 by JAIME MALAVE Gabapentin (Gabapentin) 100 Mg Capsule, 200 MG PO TID, (Reported) Entered as Reported by: SALLY PEREIRA on 12/17/17246 Last Taken: Unknown Dose on 12/16/17 Last Action: Continued on 12/17/17918 by JAIME MALAVE Lidocaine (Lidocaine) 1 Each Adh..patch, 1 EACH TP DAILY, (Reported) 5% patch apply to upper back Entered as Reported by: SALLY PEREIRA on 12/17/17246 Last Taken: Unknown Dose on 12/16/17 Last Action: Converted on 12/17/17918 by JAIME MALAVE Midodrine Hcl (Midodrine Hcl) 5 Mg Tablet, 5 MG PO TID, (Reported) hold for bp >160 systolic Entered as Reported by: SALLY PEREIRA on 12/17/17246 Last Taken: Unknown Dose on 12/16/17 Last Action: Converted on 12/17/17918 by JAIME MALAVE Mirtazapine (Mirtazapine) 15 Mg Tablet, 0.5 TAB PO QHS, #30 Ref 3 (Reported) Entered as Reported by: SALLY PEREIRA on 12/17/17246 Last Taken: Unknown Dose on 12/16/17 Last Action: Converted on 12/17/17918 by JAIME MALAVE Pantoprazole Sodium (Protonix) 20 Mg Tablet.dr, 2 TAB PO DAILY, #30 (Reported) Entered as Reported by: SALLY PEREIRA on 12/17/17246 Last Taken: Unknown Dose on 12/16/17 Last Action: Converted on 12/17/17918 by JAIME MALAVE Sennosides (Senna) 8.6 Mg Tablet, 17.6 MG PO QHS, (Reported) Entered as Reported by: SALLY PEREIRA on 12/17/17246 Last Taken: Unknown Dose on 12/15/17 Last Action: Converted on 12/17/17918 by JAIME MALAVE Sucralfate (Sucralfate) 1 Gm Tablet, 1 TAB PO QID, #120 Ref 3 (Reported) Entered as Reported by: SALLY PEREIRA on 12/17/17246 Last Taken: Unknown Dose on 12/16/17 Last Action: Converted on 12/17/17918 by JAIME MALAVE Scheduled PRN Cyclobenzaprine Hcl (Cyclobenzaprine Hcl) 10 Mg Tablet, 1 TAB PO Q8HRS PRN for MUSCLE SPASMS, #90 (Reported) Entered as Reported by: SALLY PEREIRA on 12/17/17246 Last Taken: Unknown Dose on Unknown Date & Time Last Action: Continued on 12/17/17918 by JAIME MALAVE Hydrocodone/Apap 5-325 ([place] 5-325 Tablet) 1 Each Tablet, 1 TAB PO PRN Q6HRS PRN for PAIN, #30 Ref 0 Prescribed by: MAURY MCMULLEN on 12/20/17 0935 Lorazepam (Lorazepam) 0.5 Mg Tablet, 1 TAB PO Q6HRS PRN for ANXIETY, #90 ( Reported) Entered as Reported by: SALLY PEREIRA on 12/17/17246 Last Taken: Unknown Dose on Unknown Date & Time Last Action: Continued on 12/17/17918 by JAIME MALAVE Lorazepam (Lorazepam Intensol) 2 Mg/1 Ml Oral.conc, 2 MG SL PRN Q2HR PRN for ANXIETY / AGITATION, #90 Prescribed by: MAURY MCMULLEN on 12/20/17 1005 Melatonin/Pyridoxine Hcl (B6) (Melatonin 5 Mg Tablet) 1 Each Tablet, 1 TAB PO QHS PRN for INSOMNIA, (Reported) Entered as Reported by: SALLY PEREIRA on 12/17/17246 Last Action: Converted on 12/17/17918 by JAIME MALAVE Ondansetron Hcl (Zofran) 4 Mg Tablet, 1 TAB PO Q6HRS PRN for NAUSEA/VOMITING, # 20 (Reported) Entered as Reported by: SALLY PEREIRA on 12/17/17246 Last Taken: Unknown Dose on Unknown Date & Time Last Action: Converted on 12/17/17918 by JAIME MALAVE Polyethylene Glycol 3350 (Polyethylene Glycol 3350) 255 Gm Powder, 17 GM PO Q6HRS PRN for CONSTIPATION, #527 (Reported) Entered as Reported by: SALLY PEREIRA on 12/17/17246 Last Taken: Unknown Dose on 12/16/17 Last Action: Continued on 12/17/17918 by JAIME WYLIE MD Dec 24, 2017 10:40
[2017-12-24] MEDS: DOCUSATE SODIUM 100 MG CAPSULE. PO SCH (10:58)
[2017-12-24] MEDS: SUCRALFATE 1 GM TABLET. PO SCH ×3 (10:58→16:30)
[2017-12-24] MEDS: FOLIC ACID 1 MG TABLET. PO SCH (10:58)
[2017-12-24] MEDS: PANTOPRAZOLE 40 MG TABLET.DR. PO SCH (10:58)
[2017-12-24] MEDS: MEGESTROL 20 MG TABLET. PO SCH (10:58)
[2017-12-24] MEDS: GABAPENTIN 100 MG CAPSULE. PO SCH ×2 (10:59→14:00)
[2017-12-24] MEDS: FLUTICASONE 50MCG/NASAL SPRAY 16GM BOTTLE. NS SCH (11:00)
[2017-12-24] MEDS: MIDODRINE 5 MG TABLET PO SCH ×2 (11:00→13:00)
[2017-12-24 11:21] VITALS: BP 99/69
--- NOTE | 2017-12-24 15:16 | DISCH ---
DISCHARGE DISCHARGE INFORMATION: DISCHARGE DATE: Dec 24, 2017 FINAL DIAGNOSIS Problems Medical Problems: (1) Altered mental status Status: Acute (2) Generalized weakness Status: Acute (3) History of cancer Status: Acute CONDITION ON DISCHARGE: Guarded CODE STATUS: Code Status: DNR/DNI NURSING HOME: SNF STAY <30 DAYS: Yes HOSPICE: HOSPICE: Yes HOSPICE EVAL & TREAT: Yes LTAC: ADMIT TO LTAC: No POST DISCHARGE ORDERS: ACTIVITY ORDERS: Bedrest today WEIGHT BEARING STATUS: As tolerated DIET AFTER DISCHARGE: Regular FOLLOW-UP: PHYSICIAN FOLLOW-UP: hospice TREATMENT/EQUIPMENT ORDERS: ADAPTIVE EQUIPMENT NEEDED: Cane, Front wheeled walker DISCHARGE MEDICATIONS: Home Meds Active Scripts Lorazepam (LORAZEPAM INTENSOL) 2 Mg/1 Ml Oral.conc, 2 MG SL PRN Q2HR PRN for ANXIETY / AGITATION, #90 MISC Prov:MAURY MCMULLEN MD 12/20/17 Hydrocodone/Apap 5-325 ([place] 5-325 TABLET) 1 Each Tablet, 1 TAB PO PRN Q6HRS PRN for PAIN, #30 TAB 0 Refills Prov:MAURY MCMULLEN MD 12/20/17 Reported Medications Cyclobenzaprine Hcl (CYCLOBENZAPRINE HCL) 10 Mg Tablet, 1 TAB PO Q8HRS PRN for MUSCLE SPASMS, #90 TAB 12/17/17 Melatonin/Pyridoxine Hcl (B6) (MELATONIN 5 MG TABLET) 1 Each Tablet, 1 TAB PO QHS PRN for INSOMNIA, TAB 12/17/17 Ondansetron Hcl (ZOFRAN) 4 Mg Tablet, 1 TAB PO Q6HRS PRN for NAUSEA/VOMITING, # 20 TAB 12/17/17 Lorazepam (LORAZEPAM) 0.5 Mg Tablet, 1 TAB PO Q6HRS PRN for ANXIETY, #90 TAB 12/17/17 Polyethylene Glycol 3350 (POLYETHYLENE GLYCOL 3350) 255 Gm Powder, 17 GM PO Q6HRS PRN for CONSTIPATION, #527 GM 12/17/17 Sennosides (SENNA) 8.6 Mg Tablet, 17.6 MG PO QHS, TAB 12/17/17 Sucralfate (SUCRALFATE) 1 Gm Tablet, 1 TAB PO QID, #120 TAB 3 Refills 12/17/17 Mirtazapine (MIRTAZAPINE) 15 Mg Tablet, 0.5 TAB PO QHS, #30 TAB 3 Refills 12/17/17 Fluticasone Propionate (Flonase Allergy Relief) 9.9 Ml [place].susp, 2 SPRAYS NS BID, BOTTLE 12/17/17 Diclofenac Sodium (VOLTAREN) 100 Gm Gel..gram., 1 GM TP QID for pain, #100 GM 2 Refills 12/17/17 Pantoprazole Sodium (PROTONIX) 20 Mg Tablet.dr, 2 TAB PO DAILY, #30 TAB 12/17/17 Folic Acid (FOLIC ACID) 1 Mg Tablet, 1 TAB PO DAILY, #90 TAB 1 Refill 12/17/17 Gabapentin (GABAPENTIN) 100 Mg Capsule, 200 MG PO TID, CAP 12/17/17 Lidocaine (Lidocaine) 1 Each Adh..patch, 1 EACH TP DAILY, PATCH 5% patch apply to upper back 12/17/17 Docusate Sodium (DOCUSATE SODIUM) 100 Mg Capsule, 1 CAP PO BID, #30 CAP 12/17/17 Midodrine Hcl (MIDODRINE HCL) 5 Mg Tablet, 5 MG PO TID, TAB hold for bp >160 systolic 12/17/17 JAIME MALAVE MD Dec 24, 2017 15:16
[2017-12-24 15:30] VITALS: BP 104/73
[2017-12-24] MEDS: LORazepam INTENSOL 2 MG/ML ORAL.CONC SL PRN (17:01)
== END 2017-12-24 17:15 | disposition hospice, home (50) | DRG 180 ==
LOC: ER 20:36 → 6 SOUTH 12-17 00:14
PROVIDERS: ADMIT Internal Medicine; ATTEND Internal Medicine
DX: C34.90 Malignant neoplasm of unspecified part of unspecified bronchus or lung (principal); G93.41 Metabolic encephalopathy; C78.2 Secondary malignant neoplasm of pleura; D63.0 Anemia in neoplastic disease; F43.22 Adjustment disorder with anxiety; I10 Essential (primary) hypertension; R62.7 Adult failure to thrive; Z51.5 Encounter for palliative care; T42.4X5A Adverse effect of benzodiazepines, initial encounter; R59.1 Generalized enlarged lymph nodes; R19.00 Intra-abdominal and pelvic swelling, mass and lump, unspecified site; Z66 Do not resuscitate; Z80.1 Family history of malignant neoplasm of trachea, bronchus and lung; Z88.0 Allergy status to penicillin; Z92.21 Personal history of antineoplastic chemotherapy; Z79.899 Other long term (current) drug therapy; Y92.89 Other specified places as the place of occurrence of the external cause
CPT/HCPCS: 36415; 70551; 71045; 80053; 80307; 81001; 82140; 83605; 83735; 84443; 84484; 85025; 85610; 85730; 87641; 93005; 96374; G0480; J1630; J1650; J2060; J2270; J7030; 92526; 92610; 97530; 97535; 99285-25; G0479